=== PATIENT | female | born 1985 | race Caucasian/White ===

== ENCOUNTER 2016-10-04 12:53 | Emergency (ER) | payer OTHER ==
[2016-10-04 13:20] VITALS: BMI 24.7
[2016-10-04 14:17] LABS: BASOPHIL 1.3 % (0-2.0); EOSINOPHIL 4.6 % (0-4.5); MCH 30.4 pg (25.7-33.7); MCHC 33.7 g/dl (32.0-36.0); MEAN PLT VOLUME 8.9 fl (7.5-11.1); NEUTROPHILS 59.8 % (42.8-82.8); PLATELET COUNT 317 K/MM3 (134-434); RDW 14.3 % (11.6-15.6); WHITE BLOOD COUNT 5.7 K/mm3 (4.0-10.0)
[2016-10-04 14:18] LABS: URINE APPEARANCE CLEAR; URINE BILIRUBIN NEGATIVE (NEGATIVE); URINE BLOOD NEGATIVE (NEGATIVE); URINE COLOR YELLOW; URINE GLUCOSE (UA) NEGATIVE (NEGATIVE); URINE KETONE NEGATIVE (NEGATIVE); URINE LEUK ESTERASE NEGATIVE (NEGATIVE); URINE NITRITE NEGATIVE (NEGATIVE); URINE PROTEIN NEGATIVE (NEGATIVE); URINE UROBILINOGEN NEGATIVE mg/dL (0.2-1.0)
--- NOTE | 2016-10-04 14:23 | PDOC ---
History of Present Illness - General Chief Complaint: Pain, Acute Stated Complaint: KIDNEY STONES Time Seen by Provider: 10/04/16 13:23 - History of Present Illness Initial Comments: 10/04/16 14:17 31F w/ hx of sjogren's disease and family hx of nephrolithiasis presenting with right flank pain. Pt states that she developed intermittent right flank pain several weeks ago. She went to her PCP who did an US and saw hydroureter and hematuria. She was sent to a urologist who scheduled her for a CT scan 3 days ago. Over the last 3 days, the pt's pain became constant, severe, located in right flank as well as right abdomen and right scapula. It was mildly relieved with tylenol with codeine, prescribed by the urologist. Pt reports that she hasn 't produced any urine in the last 3 days, and the tylenol with codeine stopped working yesterday. She also endorses some nausea, but denies fevers, chills, chest pain, SOB, emesis, diarrhea, and constipation. 10/04/16 14:24 10/04/16 14:30 10/04/16 14:44 Past History - Past Medical History Allergies/Adverse Reactions: Allergies Allergy/AdvReac Type Severity Reaction Status Date / Time No Known Allergies Allergy Verified 10/04/16 13:16 Home Medications: Ambulatory Orders Diazepam [Valium] 20 mg PO DAILY 10/04/16 Methylphenidate HCl [Ritalin] 30 mg PO DAILY 10/04/16 Anemia: Yes (no medication) Asthma: No Cancer: No Cardiac Disorders: No CVA: No COPD: No CHF: No Dementia: No Diabetes: No GI Disorders: No Disorders: No HTN: No Hypercholesterolemia: No Kidney Stones: No Liver Disease: No Suicide Attempt (Hx): No Seizures: No Thyroid Disease: No Comment:: 10/04/16 14:26 PMH: anxiety, ADHD PSH: 2 c-sections Meds: valium, ritalin, tylenol with codeine Allergies: NKDA, shellfish Family Hx: father and grandfather both had kidney stones Social Hx: drinks 5-6 beers every other day for several years, denies tobacco and drugs - Reproductive History Is Patient Now?: No PID: No - Immunization History Immunization Up to Date: Yes - Psycho/Social/Smoking Cessation Hx Anxiety: No Suicidal Ideation: No Smoking Status: No Smoking History: Never smoked Number of Cigarettes Smoked Daily: 0 Hx Alcohol Use: No Drug/Substance Use Hx: No Substance Use Type: Opiates Hx Substance Use Treatment: No Review of Systems - Review of Systems Comments:: 10/04/16 14:27 GENERAL: No fever, chills, night sweats, or weakness. HEAD, EYES, EARS, NOSE AND THROAT: No change in vision, ear pain, or sore throat CARDIOVASCULAR: No chest pain or palpitations RESPIRATORY: No cough, wheezing, or hemoptysis. GASTROINTESTINAL: + nausea, no vomiting, diarrhea, constipation, or blood in the stool. GENITOURINARY: + anuria MUSCULOSKELETAL: +back pain SKIN: No rashes or pruritis ENDOCRINE: No increased thirst. No abnormal weight change NEUROLOGIC: No headache, dizziness, loss of consciousness, or change in strength /sensation. *Physical Exam - Vital Signs Last Vital Signs Temp Pulse Resp BP Pulse Ox 98.2 F 98 H 19 154/89 100 10/04/16 13:16 10/04/16 13:16 10/04/16 13:16 10/04/16 13:16 10/04/16 13:16 - Physical Exam Comments: 10/04/16 14:28 GENERAL: Awake, alert, and fully oriented, in no acute distress HEAD: normocephalic, atraumatic HEENT: PERRLA, EOMI, sclera anicteric, conjunctiva clear, hearing grossly normal , nares patent, oropharynx clear without exudate, moist mucosa NECK: Normal ROM, supple, no lymphadenopathy, JVD, or masses HEART: Regular rate and rhythm, normal S1 and S2, no murmurs, rubs or gallops, peripheral pulses normal and equal bilaterally. LUNGS: decreased airflow, rhonchi ABDOMEN: soft, voluntary guarding, severely tender to palpation diffusely, worst on the right side Back: + CVA tenderness on right side but not left EXTREMITIES: Normal range of motion, no edema. SKIN: Warm, dry, no rashes or lesions noted. NEUROLOGICAL: Cranial nerves II through XII grossly intact. Normal speech, no focal sensorimotor deficits ED Treatment Course - LABORATORY CBC & Chemistry Diagram: 10/04/16 14:10 10/04/16 14:10 - RADIOLOGY Radiology Studies Ordered: Category Date Time Status KIDNEY / RENAL US [US] Stat Ultrasound 10/04/16 14:11 Ordered Medical Decision Making - Medical Decision Making 10/04/16 14:30 31F w/ hx of sjogren's disease and family hx of nephrolithiasis presenting with acute urinary retention and right flank pain. Pt was catheterized and drained 1L of yellow urine. CBC: wnl CMP: wnl UA: negative renal US: normal lipase: normal urine test: negative Differential for urinary retention includes stone in urethra, medication side effect (codeine, ritalin, valium), sjogren's complication or other neurological disorder. Spoke to Dr. Melgar (urologist) who recommends discharging the patient home with the catheter, and he will see the patient in his office early next week. Pt was informed of this, and she stated that she doesn't want to wait that long to have the catheter removed, so she told us that she wanted it removed. She was explained the risks of further urinary retention and its complications if the catheter was removed now, and she assumed them. She was informed to return to the ED if she developed any concerning symptoms. 10/04/16 15:30 *DC/Admit/Observation/Transfer Diagnosis at time of Disposition: Urinary retention - Discharge Dispostion Disposition: HOME Condition at time of disposition: Improved Admit: No - Referrals Referrals: Vu Zayas MD [Primary Care Provider] - Skip Stevenson MD [Staff Physician] - - Patient Instructions Printed Discharge Instructions: DI for Urinary Retention in Women Additional Instructions: The jacome catheter drained a liter of urine out of your bladder. Your labs and ultrasound were all normal and showed no evidence of a kidney stone or other urinary pathology. Since we removed the catheter as you requested, be extremely cautious of further urinary retention and other concerning symptoms. If you develop any of them, return to the ED. Otherwise, follow up with your urologist early next week and see a neurologist to evaluate you for neurologic causes of urinary retention.
[2016-10-04 14:39] LABS: ALK PHOS 83 U/L (45-117); ANION GAP 7 (8-16); BILIRUBIN,TOTAL 0.4 mg/dL (0.2-1.0); CO2 29 mmol/L (21-32); CREATININE 0.9 mg/dL (0.55-1.02); GLUCOSE,RANDOM 74 mg/dL (74-106); SGOT/AST 14 U/L (15-37); SGPT/ALT 24 U/L (12-78)
--- NOTE | 2016-10-04 15:32 | PDOC ---
Attending Attestation - Resident Resident Name: Rafael Madera - ED Attending Attestation I have performed the following: I have examined & evaluated the patient, The case was reviewed & discussed with the resident, I agree w/resident's findings & plan, Exceptions are as noted - HPI HPI: 10/04/16 15:33 31 F with h/o sjogren's disease presents to ER with urinary retention. Pt states that she has been seeing a urologist for flank pain. Was told that she had kidney stones because she was found to have blood in her urine. Pt states that her urologist performed a renal US and found hydronephrosis. She presents today because she states that she has not been able to void in 4 days. She denies F/C. Denies any back pain, denies any leg weakness or numbness, no saddle anesthesia, no loss of bowel control. Pt has not had kidney stones in the past but states she has a family history of them. In ER, jacome was placed with immediate drainage of 1L clear yellow urine. Pt reports significant improvement in pain after that. - Physicial Exam PE: 10/04/16 15:38 "GENERAL: Awake, alert, and fully oriented, in no acute distress HEAD: No signs of trauma EYES: PERRLA, EOMI, sclera anicteric, conjunctiva clear ENT: Auricles normal inspection, hearing grossly normal, nares patent, oropharynx clear without exudates. Moist mucosa NECK: Normal ROM, supple, no lymphadenopathy, JVD, or masses LUNGS: Breath sounds equal, clear to auscultation bilaterally. No wheezes, and no crackles HEART: Regular rate and rhythm, normal S1 and S2, no murmurs, rubs or gallops ABDOMEN: soft, mild suprapubic tenderness : jacome in place draining clear yellow urine, no sediment, no blood, + bilateral CVAT EXTREMITIES: Normal range of motion, no edema. No clubbing or cyanosis. No cords, erythema, or tenderness NEUROLOGICAL: Cranial nerves II through XII grossly intact. Normal speech, normal gait SKIN: Warm, Dry, normal turgor, no rashes or lesions noted. - Medical Decision Making 10/04/16 15:44 31 F with sjogren's disease presenting with urinary retention, now resolved s/p jacome catheter. - Labs, UA - Renal US - Call urologist 10/04/16 15:44 labs and UA unremarkable. Renal US with no hydro. Etiology of pt's urinary retention unclear. Spoke with pt's urologist, Dr. Pulido, who states he will follow up with pt in clinic on Friday. Discussed results with patient, who agrees to follow up with urology. However, pt adamantly refusing jacome catheter at this time, stating that she has young children, and it will be difficult to manage them while wearing a leg bag. Pt understands risk of removing jacome catheter and states that she will return to the ER if she has another episode of urinary retention. Discharge Disposition - Diagnosis Urinary retention - Discharge Dispostion Disposition: HOME Condition at time of disposition: Improved Last Admission D/C Date: 04/19/16 - Referrals Referrals: Skip Stevenson MD [Staff Physician] - Vu Zayas MD [Primary Care Provider] - - Patient Instructions Printed Discharge Instructions: DI for Urinary Retention in Women Additional Instructions: The jacome catheter drained a liter of urine out of your bladder. Your labs and ultrasound were all normal and showed no evidence of a kidney stone or other urinary pathology. Since we removed the catheter as you requested, be extremely cautious of further urinary retention and other concerning symptoms. If you develop any of them, return to the ED. Otherwise, follow up with your urologist early next week and see a neurologist to evaluate you for neurologic causes of urinary retention. - Post Discharge Activity
[2016-10-04 16:03] VITALS: BP 130/80; PULSE 87; TEMP 98.3
[2016-10-04 16:47] LABS: URINE MARIJUANA THC NEGATIVE ng/ml (CUTOFF=50)
== END 2016-10-04 16:02 | disposition home or self-care (01) ==
LOC: JER 12:53
PROC: 0T9B70Z Drainage of Bladder with Drainage Device, Via Natural or Artificial Opening (ICD-10-PCS; principal; 2016-10-04)
DX: R33.8 Other retention of urine (principal)
CPT/HCPCS: 36415; 51702; 76775-TC; 80053; 80307; 81003; 82150; 83690; 84703; 85025; 99284-25

== ENCOUNTER 2017-05-15 16:38 | Observation (INO) | payer OTHER ==
--- NOTE | 2017-05-15 16:48 | PDOC ---
Rapid Medical Evaluation Chief Complaint: Pain Time Seen by Provider: 05/15/17 16:42 Medical Evaluation: Allergies Allergy/AdvReac Type Severity Reaction Status Date / Time No Known Allergies Allergy Verified 10/04/16 13:16 05/15/17 16:44 I have performed a brief in-person evaluation of this patient. The patient presents with a chief complaint of: , shortness of breath and cramping in , unknown LMP "maybe nov or december", denies swelling to legs Pertinent physical exam findings: well appearing, lungs ctab, tachy to 102 I have ordered the following: labs, urine, cxr The patient will proceed to the ED for further evaluation. Discharge Disposition - Diagnosis Shortness of breath during - Referrals - Patient Instructions - Post Discharge Activity
[2017-05-15 16:51] VITALS: BMI 24.4
--- NOTE | 2017-05-15 17:17 | PDOC ---
History of Present Illness - General Chief Complaint: Pain Stated Complaint: STOMACH PAIN Time Seen by Provider: 05/15/17 16:42 History Source: Patient Exam Limitations: No Limitations - History of Present Illness Initial Comments: 05/15/17 17:47 PCP: Nicholas PICKETT , Wili PICKETT CC: SOB and abdominal cramping HPI: 30 year old female , with unknown LMP and does not age of presented with 3 weeks history of sob and abdominal cramping , that has been worsening recently , the abdominal pain is 6/10 bilateral , and she reports feeling werd movement in her abdomen when she did not feel in her previous pregnancies.She reports chills but no fever, she reports sore throat and difficulty swallowing, she denies any cough , dysduria or hematuria but reports bad urine smell with dark color. she reports constipation last BM 3 days ago. she reports chest pain mid sternal radiated to her left arm last week that resolved spontaneously. Pmhx: sjougren disease, anemia, ADHD on Ritalin stopped last week PSHX: X2 FH:Father : Heart Disease, CAD, COPD, Lungs cancer and esophageal cancer in her father , DM , BP Mothr with BP Allergies: NKDA Meds: None Physical Exam: General well nourished in NAD Head: NC.AT Lungs: CTA B.l Heart: RRR, no MRG Abdomen: gestational , diffuse tenderness, normal BS Neuro: No focal deficit, normal speech, normal gait Skin: warm , dry with scaling Psych : appropriate mood and effect vaginal exam: no cervical motion tenderness, white discharges , no blood, os is closed. work up: CBC, CMP Type and screen tranvaginal US vs abdominla US pt refused IV Tylenol Past History - Past Medical History Allergies/Adverse Reactions: Allergies Allergy/AdvReac Type Severity Reaction Status Date / Time No Known Allergies Allergy Verified 05/15/17 16:45 Home Medications: Ambulatory Orders Methylphenidate HCl [Ritalin] 30 mg PO DAILY 10/04/16 Anemia: Yes (no medication) Asthma: No Cancer: No Cardiac Disorders: No CVA: No COPD: No CHF: No Dementia: No Diabetes: No GI Disorders: No Disorders: No HTN: No Hypercholesterolemia: No Kidney Stones: No Liver Disease: No Seizures: No Thyroid Disease: No - Reproductive History PID: No - Immunization History Immunization Up to Date: Yes - Suicide/Smoking/Psychosocial Hx Smoking Status: No Smoking History: Never smoked Number of Cigarettes Smoked Daily: 0 Hx Alcohol Use: No Drug/Substance Use Hx: No Substance Use Type: Opiates Hx Substance Use Treatment: No *Physical Exam - Vital Signs Last Vital Signs Temp Pulse Resp BP Pulse Ox 97.9 F 102 H 20 119/78 99 05/15/17 16:40 05/15/17 16:40 05/15/17 16:40 05/15/17 16:40 05/15/17 16:40 ED Treatment Course - LABORATORY CBC & Chemistry Diagram: 05/15/17 17:16 *DC/Admit/Observation/Transfer Diagnosis at time of Disposition: Shortness of breath during - Referrals Referrals: Vu Zayas MD [Primary Care Provider] - - Patient Instructions - Post Discharge Activity
[2017-05-15 17:30] LABS: URINE APPEARANCE CLEAR; URINE BILIRUBIN NEGATIVE (<2.0 mg/dL); URINE BLOOD NEGATIVE (NEGATIVE); URINE COLOR YELLOW; URINE GLUCOSE (UA) NEGATIVE (NEGATIVE); URINE KETONE NEGATIVE (NEGATIVE); URINE LEUK ESTERASE NEGATIVE (NEGATIVE); URINE NITRITE NEGATIVE (NEGATIVE); URINE PROTEIN NEGATIVE (NEGATIVE); URINE UROBILINOGEN NEGATIVE mg/dL (0.2-1.0)
--- NOTE | 2017-05-15 17:48 | PDOC ---
Attending Attestation - [facility] HPI: 05/15/17 17:56 The patient is a 32 year old female(, does not remember LMP), with a significant past medical history of anemia and ADHD, who presents to the emergency department with abdominal pain and shortness of breath for approximately 3 weeks. The patient reports her pain is localized mainly to the lower quadrants and is crampy in nature and nonradiating. She rates it a 6/10, with no alleviating or exacerbating factors. She reports associated constipation for 3 days, but no nausea, vomiting, or diarrhea. Patient states she feels a weird movement she has not experienced in previous pregnancies. She reports foul odorous urine, but no dysuria, hematuria, frequency, urgency, or vaginal bleeding/discharge. She reports a sore throat, but denies fever or chills. Patient reports she has not followed up with an OB for this visit. OBGYN: Dr. Martinez - Physicial Exam PE: 05/15/17 17:56 Constitutional: Awake, alert, oriented. No acute distress. Head: Normocephalic. Atraumatic Eyes: PERRL. EOMI. Conjunctivae are not pale. ENT: Mucous membranes are moist and intact. Posterior pharynx without exudates or erythema. Uvula midline. Neck: Supple. Full ROM. No lymphadenopathy. Cardiovascular: Tachycardic. Regular rhythm. S1, S2 regular. Distal pulses are 2+ and symmetric. Pulmonary/Chest: No evidence of respiratory distress. Clear to auscultation bilaterally No wheezing, rales or rhonchi. Abdominal: Mild lower pelvic tenderness to palpation. Palpable uterus below the umbilicus. Soft and non-distended. No rebound, guarding or rigidity. No organomegaly. Good bowel sounds. Pelvic: Defer to resident note. Back: No CVA tenderness. Musculoskeletal: No edema. No cyanosis. No clubbing. Full range of motion in all extremities. No calf tenderness. Radial/pedal pulses are intact and 2+ bilaterally Skin: Skin is warm and dry. No petechiae. No purpura. Neurological: Alert and oriented to person, place, and time. Cranial nerves II -XII are grossly intact. Normal speech. Strength is grossly symmetric. No sensory deficits. Psychiatric: Good eye contact. Normal interaction, affect and behavior. - Medical Decision Making 05/15/17 17:56 Documentation prepared by Dorothy Nelson, acting as medical clinic manager for Amy Motley DO. <Dorothy Nelson - Last Filed: 05/16/17 00:34> - Resident Resident Name: Aric Quiñones - ED Attending Attestation I have performed the following: I have examined & evaluated the patient, The case was reviewed & discussed with the resident, I agree w/resident's findings & plan, Exceptions are as noted - Medical Decision Making 05/15/17 17:48 I, Dr. Amy Motley, DO, attest that this document has been prepared under my direction and personally reviewed by me in its entirety. I further attest, that it accurately reflects all work, treatment, procedures and medical decision -making performed by me. 05/15/17 19:03 a/p: 32yo at unknown dates with pelvic cramping -states she does feel the baby move -has note seen artificial breeding distributor, no care -denies dysuria -no n/v/d now, had it in february -will obtain labs, pelvic u/s -will give vitamin rx -follows with Dr. Martinez -will give ivf hydration -will monitor and reassess 05/15/17 23:27 pt not feeling well after the lab stick states hx of vasovagal placed in a stretcher given apple juice will monitor and reassess 05/15/17 23:31 glucose on labs was 66, after apple juice now 99 pt feeling better and drinking OJ 05/15/17 23:31 pt asking for her phone to call her family 05/16/17 00:04 pt with hypoglycemia on labs finally agreeable to have IV placed and give dextrose 05/16/17 00:38 re-eval: pt agreeable to stay for further eval case discussed with DR. 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 Galan <Amy Motley - Last Filed: 05/16/17 00:57> Discharge Disposition - Discharge Dispostion Last Admission D/C Date: 04/19/16 Admit: Yes <Amy Motley - Last Filed: 05/16/17 00:57> - Diagnosis Shortness of breath during , Abdominal pain during in second trimester, Hypoglycemia, - Discharge Dispostion Condition at time of disposition: Stable - Prescriptions Prescriptions: Meclizine HCl [Antivert -] 12.5 mg PO TID 7 Days #21 tablet MDD 3 tab Vit 108/Iron/Folic AC [ One Tablet] 1 each PO DAILY 30 Days # 30 tablet MDD 1 tab - Referrals Referrals: Jailyn Mendez MD [Staff Physician] - Vu Zayas MD [Primary Care Provider] - Brendan Martinez MD [Staff Physician] - - Patient Instructions Printed Discharge Instructions: DI for Abdominal Pain -- Early Additional Instructions: Please return to the emergency department with any new or worsening symptoms or concerns. Please follow up with your School Secretary physician within 72 hours. Please take vitamins daily. - Post Discharge Activity Work/School Note: Back to Work ED Treatment Course - LABORATORY CBC & Chemistry Diagram: 05/15/17 21:45 05/15/17 17:16 - ADDITIONAL ORDERS Additional order review: Laboratory Results 05/15/17 05/15/17 05/15/17 21:49 18:10 17:20 Sodium Potassium Chloride Carbon Dioxide Anion Gap BUN Creatinine Creat Clearance w eGFR POC Glucometer 99.78533 Random Glucose Calcium Total Bilirubin AST ALT Alkaline Phosphatase Total Protein Albumin Beta HCG, Quant Urine Color Yellow Urine Appearance Clear Urine pH 5.0 Ur Specific [place] 1.033 Urine Protein Negative Urine Glucose (UA) Negative Urine Ketones Negative Urine Blood Negative Urine Nitrite Negative Urine Bilirubin Negative Urine Urobilinogen Negative Ur Leukocyte Esterase Negative Blood Type O POSITIVE Antibody Screen Negative 05/15/17 05/15/17 17:16 17:16 Sodium 141 Potassium 3.7 Chloride 105 Carbon Dioxide 25 Anion Gap 11 BUN 12 Creatinine 0.5 L Creat Clearance w eGFR > 60 POC Glucometer Random Glucose 66 L Calcium 8.6 Total Bilirubin 0.3 D AST 18 ALT 22 Alkaline Phosphatase 63 Total Protein 6.6 Albumin 3.6 Beta HCG, Quant 05901.1 Urine Color Urine Appearance Urine pH Ur Specific [place] Urine Protein Urine Glucose (UA) Urine Ketones Urine Blood Urine Nitrite Urine Bilirubin Urine Urobilinogen Ur Leukocyte Esterase Blood Type Cancelled Antibody Screen Cancelled 05/15/17 05/15/17 21:49 21:45 RBC 3.65 MCV 89.2 MCHC 35.0 RDW 14.4 MPV 8.4 Neutrophils % 71.6 Lymphocytes % 19.4 D Monocytes % 6.9 Eosinophils % 1.4 Basophils % 0.7 POC Glucometer 99.24849 - RADIOLOGY Radiograph Interpretation: 05/16/17 00:35 EXAM: Transvaginal US INTERPRETED BY: Dr. Espinal REVIEWED BY: Dr. Motley IMPRESSION: Single live intrauterine with biometry corresponding to an estimated gestational age of 16 weeks and 2 days. A dedicated anatomy survey should be performed at the appropriate gestational age - Medications Given in the ED: ED Medications Discontinued Medications Generic Name Dose Route Start Last Admin Trade Name Freq PRN Reason Stop Dose Admin Dextrose 12.5 gm 05/16/17 00:04 05/16/17 00:32 D50w (Vial) - IVPUSH 05/16/17 00:05 12.5 gm NOW ONE Administration Sodium Chloride 1,000 mls @ 1,000 mls/hr 05/15/17 18:31 05/15/17 20:09 Normal Saline - IV 05/15/17 19:30 Not Given ASDIR STA Sodium Chloride 1,000 mls @ 1,000 mls/hr 05/15/17 18:31 05/15/17 20:09 Normal Saline - IV 05/15/17 19:30 Not Given ASDIR STA Meclizine HCl 25 mg 05/15/17 22:53 05/16/17 00:33 Antivert - PO 05/15/17 22:54 Not Given ONCE ONE Sodium Chloride 1,000 ml 05/16/17 00:04 05/16/17 00:32 Normal Saline - IV 05/16/17 00:05 1,000 ml ONCE ONE Administration <Dorothy Nelson - Last Filed: 05/16/17 00:34> - LABORATORY CBC & Chemistry Diagram: 05/15/17 21:45 05/15/17 17:16 <Amy Motley - Last Filed: 05/16/17 00:57> Critical Care Time/MDM Note - Medical Decision Making Note: 05/16/17 00:[address] Martinez at 00:35. <Dorothy Nelson - Last Filed: 05/16/17 00:34>
[2017-05-15 18:20] LABS: ALBUMIN 3.6 g/dl (3.4-5.0); ALK PHOS 63 U/L (45-117); ANION GAP 11 (8-16); BILIRUBIN,TOTAL 0.3 mg/dL (0.2-1.0); BLOOD UREA NITROGEN 12 mg/dL (7-18); CALCIUM 8.6 mg/dL (8.5-10.1); CHLORIDE 105 mmol/L (98-107); CO2 25 mmol/L (21-32); CREATININE 0.5 mg/dL (0.55-1.02); GLUCOSE,RANDOM 66 mg/dL (74-106); POTASSIUM 3.7 mmol/L (3.5-5.1); SGOT/AST 18 U/L (15-37); SGPT/ALT 22 U/L (12-78); SODIUM 141 mmol/L (136-145); TOT PROT 6.6 g/dl (6.4-8.2)
[2017-05-15] MEDS ORDERED: SODIUM CHLORIDE 1,000 ML IV STA ×2 (18:31)
--- NOTE | 2017-05-15 18:35 | PDOC ---
*Physical Exam - Vital Signs Last Vital Signs Temp Pulse Resp BP Pulse Ox 97.9 F 102 H 20 119/78 99 05/15/17 16:40 05/15/17 16:40 05/15/17 16:40 05/15/17 16:40 05/15/17 16:40 - Physical Exam Comments: 05/15/17 18:51 GENERAL: Awake, alert, and fully oriented, in no acute distress HEAD: No signs of trauma, normocephalic, atraumatic EYES: PERRLA, EOMI, sclera anicteric, conjunctiva clear ENT: Hearing grossly normal, nares patent, oropharynx clear without exudates. Moist mucosa NECK: Normal ROM, supple, no lymphadenopathy, JVD, or masses LUNGS: No distress, speaks full sentences, clear to auscultation bilaterally HEART: Regular rate and rhythm, normal S1 and S2, no murmurs, rubs or gallops, peripheral pulses normal and equal bilaterally. ABDOMEN: Soft, lower abdominal ttp, normoactive bowel sounds. No guarding, no rebound. No masses. Neg CVA ttp. EXTREMITIES : Normal inspection, Normal range of motion, no edema. No clubbing or cyanosis. SKIN: Warm, Dry, normal turgor, no rashes or lesions noted ED Treatment Course - LABORATORY CBC & Chemistry Diagram: 05/15/17 21:45 05/15/17 17:16 - ADDITIONAL ORDERS Additional order review: Laboratory Results 05/15/17 05/15/17 17:20 17:16 Urine Color Yellow Urine Appearance Clear Urine pH 5.0 Ur Specific [place] 1.033 Urine Protein Negative Urine Glucose (UA) Negative Urine Ketones Negative Urine Blood Negative Urine Nitrite Negative Urine Bilirubin Negative Urine Urobilinogen Negative Ur Leukocyte Esterase Negative Blood Type Cancelled Antibody Screen Cancelled Medical Decision Making - Medical Decision Making 05/15/17 18:21 30 yo F with h/o Sjogrens Syndrome , unknown LMP and wga who p/w SOB x 3 weeks, and worsening, diffuse, abdominal cramping , and report of abnormal movement/sensation in abdomen. Endorses dysphagia, foul smelling urine and retrosternal CP with radiation to LUE ( now resolved). Denies N/V, F/C, diarrhea , weakness, lightheadedness. Cervical os closed on pelvic exam, with scant discharge. Slight lower abdominal ttp. Received handoff from Dr. Quiñones. We are awaiting labs and transvaginal U/S. Pt. triaged in [facility]. Evaluating viable IUP, and or related causes of abdominal pain/cramping such as ectopic , or early threatened . ED Course: 05/15/17 18:25 CBC, CMP, UA, Urine Cx., [facility] [place] 05/15/17 18:35 CMP Unremarkable UA: Neg 05/15/17 19:48 Transvaginal U/S: 16w 2d viable IUP. [facility] [place] 05/15/17 19:51 Patient stable and ready for d/c with return precautions. Advised to f/u with Ob /Network Design Architect. vitamins sent to pharmacy. 05/15/17 22:21 CBC: Unremarkable *DC/Admit/Observation/Transfer Diagnosis at time of Disposition: Shortness of breath during , Abdominal pain during in second trimester - Discharge Dispostion Condition at time of disposition: Stable Admit: No - Prescriptions Prescriptions: Vit 108/Iron/Folic AC [ One Tablet] 1 each PO DAILY 30 Days # 30 tablet MDD 1 tab - Referrals Referrals: Vu Zayas MD [Primary Care Provider] - Jailyn Mendez MD [Staff Physician] - Brendan Martinez MD [Staff Physician] - - Patient Instructions Printed Discharge Instructions: DI for Abdominal Pain -- Early Additional Instructions: Please return to the emergency department with any new or worsening symptoms or concerns. Please follow up with your Diagnostic Radiologic Technologist physician within 72 hours. Please take vitamins daily. - Post Discharge Activity Forms/Work/School Notes: Back to Work - Attestations Physician Attestion: 05/15/17 19:51 I attest to the information provided in this note.
[2017-05-15] MEDS ORDERED: HEMOQUE CONTROL SOLUTION ONE (21:38)
[2017-05-15 21:53] LABS: BASO % 0.7 % (0-2.0); EOS % 1.4 % (0-4.5); HEMATOCRIT 32.6 % (32.4-45.2); HEMOGLOBIN 11.4 GM/dL (10.7-15.3); LYMPH % 19.4 % (8-40); MCH 31.2 pg (25.7-33.7); MEAN CELL VOLUME 89.2 fl (80-96); MEAN PLT VOLUME 8.4 fl (7.5-11.1); MONO % 6.9 % (3.8-10.2); NEUT % 71.6 % (42.8-82.8); PLATELET COUNT 247 K/MM3 (134-434); RBC 3.65 M/mm3 (3.60-5.2); RDW 14.4 % (11.6-15.6); WHITE BLOOD COUNT 7.2 K/mm3 (4.0-10.0)
[2017-05-15] MEDS ORDERED: MECLIZINE HCL 25 MG TABLET (FP) PO ONE (22:53)
[2017-05-16] MEDS ORDERED: DEXTROSE 50%-WATER 25 GM/50 ML DISP.SYRIN ONE (00:02)
[2017-05-16] MEDS ORDERED: SODIUM CHLORIDE 0.9% 1000 ML INFUS.BAG IV ONE (00:04)
[2017-05-16] MEDS ORDERED: DEXTROSE 50%-WATER - 25 GM/50 ML VIAL IVPUSH ONE (00:04)
--- NOTE | 2017-05-16 00:56 | HP ---
CHIEF COMPLAINT: Abdominal Cramping PCP: Dr. Zayas HISTORY OF PRESENT ILLNESS: This is a 32 y/o young woman with a medical history of , ADHD, Anemia, Depression, Anxiety, Opiate Abuse (detox 2016). Who presents to the ED with abdominal cramping, SOB, dysuria x3 weeks. Patient reports knowing that she was , and had not received care. Patient unsure of her LMP due to irregular menses. She reports having cramping that was worse today, white discharge, with foul smelling urine. She also reports constipation x 3 days. Patient reports having SOB, cough, and pleuritic chest pain- now resolved. Patient denies fever, chills, [place], V/D, vaginal bleeding. ER course was notable for: (1) Trans Vaginal US- Single live intrauterine gestation 16 weeks and 2 days (2) Serum Glucose 66 (3) [facility] [place] [id number] Recent Travel: None PAST MEDICAL HISTORY: See HPI PAST SURGICAL HISTORY: C- sections x2 Social History: Smoking: Never Alcohol: Denies Drugs: Denies Lives with Spouse Family History: Father- Heart disease, Lung Ca Mother- HTN Allergies No Known Allergies Allergy (Verified 05/15/17 16:45) HOME MEDICATIONS: Home Medications Medication Instructions Recorded Methylphenidate HCl [Ritalin] 60 mg PO DAILY 10/04/16 Meclizine HCl [Antivert -] 12.5 mg PO TID 7 Days #21 tablet 05/15/17 MDD 3 tab Vit 108/Iron/Folic AC 1 each PO DAILY 30 Days #30 tablet 05/15/17 [ One Tablet] MDD 1 tab REVIEW OF SYSTEMS CONSTITUTIONAL: Absent: fever, chills, diaphoresis, generalized weakness, malaise, loss of appetite, weight change HEENT: Absent: rhinorrhea, nasal congestion, throat pain, throat swelling, difficulty swallowing, mouth swelling, ear pain, eye pain, visual changes CARDIOVASCULAR: Absent: chest pain, syncope, palpitations, irregular heart rate, lightheadedness , peripheral edema RESPIRATORY: shortness of breath Absent: cough, dyspnea with exertion, orthopnea, wheezing, stridor, hemoptysis GASTROINTESTINAL: abdominal pain Absent: abdominal distension, nausea, vomiting, diarrhea, constipation, melena , hematochezia GENITOURINARY: dysuria, malodorous urine Absent: frequency, urgency, hesitancy, hematuria, flank pain, genital pain GYNECOLOGY: vaginal discharge MUSCULOSKELETAL: Absent: myalgia, arthralgia, joint swelling, back pain, neck pain SKIN: Absent: rash, itching, pallor HEMATOLOGIC/IMMUNOLOGIC: Absent: easy bleeding, easy bruising, lymphadenopathy, frequent infections ENDOCRINE: Absent: unexplained weight gain, unexplained weight loss, heat intolerance, cold intolerance NEUROLOGIC: Absent: headache, focal weakness or paresthesias, dizziness, unsteady gait, seizure, mental status changes, bladder or bowel incontinence PSYCHIATRIC: Absent: anxiety, depression, suicidal or homicidal ideation, hallucinations. PHYSICAL EXAMINATION Vital Signs - 24 hr 05/15/17 05/15/17 05/15/17 16:40 20:39 23:57 Temperature 97.9 F 98.5 F Pulse Rate 102 H Pulse Rate [ 63 58 L Apical] Respiratory 20 18 17 Rate Blood Pressure 119/78 Blood Pressure 122/70 100/63 [Left Arm] O2 Sat by Pulse 99 100 98 Oximetry (%) GENERAL: Asleep, alert, and fully oriented, in no acute distress. HEAD: Normal with no signs of trauma. EYES: Pupils equal, round and reactive to light, extraocular movements intact, sclera anicteric, conjunctiva clear. No lid lag. EARS, NOSE, THROAT: Ears normal, nares patent, oropharynx clear without exudates. Dry mucous membranes. NECK: Normal range of motion, supple without lymphadenopathy, JVD, or masses. LUNGS: Breath sounds equal, clear to auscultation bilaterally. No wheezes, and no crackles. No accessory muscle use. HEART: Regular rate and rhythm, normal S1 and S2 without murmur, rub or gallop. ABDOMEN: Soft, Generalized tenderness, not distended, normoactive bowel sounds, no guarding, no rebound, no masses. No hepatomegaly or splenomegaly. MUSCULOSKELETAL: Normal range of motion at all joints. No bony deformities or tenderness. No CVA tenderness. UPPER EXTREMITIES: 2+ pulses, warm, well-perfused. No cyanosis. No clubbing. No peripheral edema. LOWER EXTREMITIES: 2+ pulses, warm, well-perfused. No calf tenderness. No peripheral edema. NEUROLOGICAL: Cranial nerves II-XII intact. Normal speech. Gait not observed. PSYCHIATRIC: Cooperative. Good eye contact. Appropriate mood and affect. SKIN: Warm, dry, normal turgor, no rashes or lesions noted, normal capillary refill. Tattoos Laboratory Results - last 24 hr 05/15/17 05/15/17 05/15/17 17:16 17:16 17:20 WBC RBC Hgb Hct MCV MCH MCHC RDW Plt Count MPV Neutrophils % Lymphocytes % Monocytes % Eosinophils % Basophils % Sodium 141 Potassium 3.7 Chloride 105 Carbon Dioxide 25 Anion Gap 11 BUN 12 Creatinine 0.5 L Creat Clearance w eGFR > 60 POC Glucometer Random Glucose 66 L Calcium 8.6 Total Bilirubin 0.3 D AST 18 ALT 22 Alkaline Phosphatase 63 Total Protein 6.6 Albumin 3.6 Beta HCG, Quant 68173.1 Urine Color Yellow Urine Appearance Clear Urine pH 5.0 Ur Specific [place] 1.033 Urine Protein Negative Urine Glucose (UA) Negative Urine Ketones Negative Urine Blood Negative Urine Nitrite Negative Urine Bilirubin Negative Urine Urobilinogen Negative Ur Leukocyte Esterase Negative Blood Type Cancelled Antibody Screen Cancelled 05/15/17 05/15/17 05/15/17 18:10 21:45 21:49 WBC 7.2 RBC 3.65 Hgb 11.4 D Hct 32.6 MCV 89.2 MCH 31.2 MCHC 35.0 RDW 14.4 Plt Count 247 D MPV 8.4 Neutrophils % 71.6 Lymphocytes % 19.4 D Monocytes % 6.9 Eosinophils % 1.4 Basophils % 0.7 Sodium Potassium Chloride Carbon Dioxide Anion Gap BUN Creatinine Creat Clearance w eGFR POC Glucometer 99.13394 Random Glucose Calcium Total Bilirubin AST ALT Alkaline Phosphatase Total Protein Albumin Beta HCG, Quant Urine Color Urine Appearance Urine pH Ur Specific [place] Urine Protein Urine Glucose (UA) Urine Ketones Urine Blood Urine Nitrite Urine Bilirubin Urine Urobilinogen Ur Leukocyte Esterase Blood Type O POSITIVE Antibody Screen Negative ASSESSMENT/PLAN: This is a 32 y/o young woman PMH , ADHD, Depression, Anxiety, Anemia, Opiate Abuse. Placed in Observation for Hypoglycemia, Plan: 1. Hypoglycemia- Possibly due to Hormone Deficiency vs Insulinoma vs Alcohol vs Drugs, FS Q3h, D5W@42ml/hr, BMP, Cortisol level in am, Appreciate Endocrinology consult, monitor vitals, Seizure and Fall precautions 2. - Trans Vaginal US- single intrauterine gestation 16w 2d, vitamins, FU with VISUAL EFFECTS ARTIST- care 3. Anemia- stable, Will transfuse if Hgb < 7.0, monitor CBC 4. Psych- Depression, Anxiety, ADHD- stable, Consult VISUAL EFFECTS ARTIST or Psych regarding Ritalin use 2/2 Category C 5. Opiate Abuse- prior Detox hx, UDT-pending 6. FEN- D5W@42ml/hr, Monitor Glucose, Regular Diet 7. DVT ppx- OOB, SCDs Code Status: Full Code Dispo: Observation Problem List - Problem (1) Hypoglycemia Code(s): E16.2 - HYPOGLYCEMIA, UNSPECIFIED (2) Abdominal pain during in second trimester Code(s): O26.892 - OTH RELATED CONDITIONS, SECOND TRIMESTER; R10.9 - UNSPECIFIED ABDOMINAL PAIN (3) ADHD (attention deficit hyperactivity disorder) Code(s): F90.9 - ATTENTION-DEFICIT HYPERACTIVITY DISORDER, UNSPECIFIED TYPE (4) Anxiety disorder Code(s): F41.9 - ANXIETY DISORDER, UNSPECIFIED (5) Opiate abuse, episodic Code(s): F11.10 - OPIOID ABUSE, UNCOMPLICATED (6) DVT prophylaxis Code(s): BLY1581 - Visit type - Emergency Visit Emergency Visit: Yes ED Registration Date: 05/15/17 Care time: The patient presented to the Emergency Department on the above date and was hospitalized for further evaluation of their emergent condition. - New Patient This patient is new to me today: Yes Date on this admission: 05/16/17 - Critical Care Critical Care patient: No Hospitalist Screening - Colonoscopy Questionnaire Colonoscopy Questionnaire: Colonoscopy Questionnaire - Patient: 50 - 75 years old and never had a screening colonoscopy: No History of colon or rectal polyps, or CA: No History of IBD, Crohn's disease or UC: No History of abdominal radiation therapy as a child: No - Relative: 1 with colon or rectal CA, or polyps at age 60 or younger: No Colon or rectal CA diagnosed at age 45 or younger: No Multiple relatives with colon or rectal CA: No - Outcome: Screening Result: Negative Screen
[2017-05-16] MEDS: DEXTROSE 5%-WATER - 1,000 ML IV SCH (02:46)
[2017-05-16 03:34] LABS: COCAINE, UR NEGATIVE ng/ml (CUTOFF=300); METHADONE, UR NEGATIVE ng/ml (CUTOFF=300); OPIATES, URI NEGATIVE ng/ml (CUTOFF=300); PHENCYCLIDINE,URINE NEGATIVE ng/ml (CUTOFF=25); URINE BARBITURATES NEGATIVE ng/ml (CUTOFF=200); URINE BENZODIAZEPINES NEGATIVE ng/ml (CUTOFF=200)
[2017-05-16 03:35] LABS: URINE AMPHETAMINES POSITIVE ng/ml (CUTOFF=500)
[2017-05-16 06:47] LABS: BASO % 0.9 % (0-2.0); EOS % 1.5 % (0-4.5); HEMOGLOBIN 11.9 GM/dL (10.7-15.3); LYMPH % 24.1 % (8-40); MCH 31.1 pg (25.7-33.7); MEAN CELL VOLUME 88.9 fl (80-96); MEAN PLT VOLUME 8.8 fl (7.5-11.1); MONO % 9.7 % (3.8-10.2); NEUT % 63.8 % (42.8-82.8); PLATELET COUNT 246 K/MM3 (134-434); RBC 3.82 M/mm3 (3.60-5.2); RDW 14.8 % (11.6-15.6); WHITE BLOOD COUNT 5.6 K/mm3 (4.0-10.0)
[2017-05-16 07:09] LABS: ANION GAP 9 (8-16); BLOOD UREA NITROGEN 4 mg/dL (7-18); CALCIUM 7.9 mg/dL (8.5-10.1); CHLORIDE 107 mmol/L (98-107); CO2 25 mmol/L (21-32); CREATININE 0.4 mg/dL (0.55-1.02); GLUCOSE,RANDOM 86 mg/dL (74-106); PHOSPHOROUS 3.5 mg/dL (2.5-4.9); POTASSIUM 3.5 mmol/L (3.5-5.1); SODIUM 141 mmol/L (136-145)
--- NOTE | 2017-05-16 10:30 | PN ---
Progress Note, Physician Chief Complaint: PATIENT SEEN AND EXAMINED NOTES AND CHART REVIEWED I AGREE WITH THE RESIDENTS AND HOSPITALISTS PLAN - Current Medication List Current Medications: Active Medications Dextrose (D5w -) 1,000 mls @ 42 mls/hr IV ASDIR MICHELLE Last Admin: 05/16/17 02:46 Dose: 42 mls/hr - Objective Vital Signs: Vital Signs Temperature 97.9 F 05/16/17 07:48 Pulse Rate 57 L 05/16/17 07:48 Respiratory Rate 20 05/16/17 07:48 Blood Pressure 132/54 05/16/17 07:48 O2 Sat by Pulse Oximetry (%) 98 05/16/17 08:15 Constitutional: Yes: Mild Distress Eyes: Yes: WNL HENT: Yes: WNL Neck: Yes: WNL Cardiovascular: Yes: WNL Respiratory: Yes: WNL Gastrointestinal: Yes: WNL Genitourinary: Yes: WNL Musculoskeletal: Yes: WNL Extremities: Yes: WNL Edema: No Peripheral Pulses WNL: Yes Integumentary: Yes: WNL Wound/Incision: Yes: Clean/Dry Neurological: Yes: WNL ...Motor Strength: WNL Psychiatric: Yes: Other Labs: CBC, BMP 05/16/17 06:24 05/16/17 06:24 Problem List - Problems (1) Abdominal pain during in second trimester Code(s): O26.892 - OTH RELATED CONDITIONS, SECOND TRIMESTER; R10.9 - UNSPECIFIED ABDOMINAL PAIN (2) DVT prophylaxis Code(s): [id number] - (3) Hypoglycemia Code(s): E16.2 - HYPOGLYCEMIA, UNSPECIFIED (4) Code(s): Z34.90 - ENCNTR FOR SUPRVSN OF NORMAL , UNSP, UNSP TRIMESTER (5) Shortness of breath during Code(s): O99.89 - OTH DISEASES AND CONDITIONS COMPL PREG/CHLDBRTH; R06.02 - SHORTNESS OF BREATH (6) ADHD (attention deficit hyperactivity disorder) Code(s): F90.9 - ATTENTION-DEFICIT HYPERACTIVITY DISORDER, UNSPECIFIED TYPE (7) Anxiety disorder Code(s): F41.9 - ANXIETY DISORDER, UNSPECIFIED Assessment/Plan OB CONSULT HIGH RISK ? WORKUP IN PROGRESS PULMONARY AND ENDOCRINE WORKUP FOR SOB AND HYPOGLYCEMIA MONITOR LABS AND BGM
--- NOTE | 2017-05-16 16:04 | CONSULT ---
Consult Consult Specialty:: endocrine Referred by:: ernie miranda NP Reason for Consultation:: hypoglycemia - History of Present Illness Chief Complaint: weakness,diaphoretic 16 weeks gestation History of Present Illness: 30 year old female , with unknown LMP and does not age of presented with 3 weeks history of sob and abdominal cramping , that has been worsening recently , the abdominal pain is 6/10 bilateral , and she reports feeling werd movement in her abdomen when she did not feel in her previous pregnancies.She reports chills but no fever, she reports episodes of hypoglycemia,with symptomatic weakness and vertigo - History Source History Provided By: Patient - Past Medical History ...LMP: 09/29/16 ...: Yes - Past Surgical History Past Surgical History: Yes: - Alcohol/Substance Use Hx Alcohol Use: No History of Substance Use: reports: None - Smoking History Smoking history: Never smoked Aproximately how many cigarettes per day: 0 - Social History History of Recent Travel: No Home Medications - Allergies Allergies/Adverse Reactions: Allergies Allergy/AdvReac Type Severity Reaction Status Date / Time No Known Allergies Allergy Verified 05/15/17 16:45 - Home Medications Home Medications: Ambulatory Orders Methylphenidate HCl [Ritalin] 60 mg PO DAILY 10/04/16 Meclizine HCl [Antivert -] 12.5 mg PO TID 7 Days #21 tablet MDD 3 tab 05/15/17 Vit 108/Iron/Folic AC [ One Tablet] 1 each PO DAILY 30 Days # 30 tablet MDD 1 tab 05/15/17 Family Disease History - Family Disease History Family Disease History: Other: Sister (dsa) Review of Systems - Review of Systems Constitutional: reports: Loss of Appetite Eyes: reports: No Symptoms HENT: reports: No Symptoms Neck: reports: No Symptoms Cardiovascular: reports: No Symptoms Respiratory: reports: No Symptoms Gastrointestinal: reports: Bloating Genitourinary: reports: Dysuria, Frequency Breasts: reports: No Symptoms Reported Musculoskeletal: reports: No Symptoms Integumentary: reports: No Symptoms Neurological: reports: Numbness, Weakness Endocrine: reports: Excessive Sweating, Flushing Physical Exam Vital Signs: Vital Signs Temperature 98.1 F 05/16/17 15:19 Pulse Rate 72 05/16/17 15:19 Respiratory Rate 18 05/16/17 15:19 Blood Pressure 113/48 05/16/17 15:19 O2 Sat by Pulse Oximetry (%) 98 05/16/17 08:15 Constitutional: Yes: Anxious Eyes: Yes: EOM Intact HENT: Yes: Normocephalic Neck: Yes: Trachea Midline Cardiovascular: Yes: Regular Rate and Rhythm Respiratory: Yes: CTA Bilaterally Gastrointestinal: Yes: Normal Bowel Sounds ...Rectal Exam: Yes: Deferred Renal/: Yes: WNL Breast(s): Yes: WNL Musculoskeletal: Yes: WNL Extremities: Yes: WNL Edema: No Integumentary: Yes: WNL Neurological: Yes: Alert, Oriented Labs: CBC, BMP 05/16/17 06:24 05/16/17 06:24 Problem List - Problems (1) Abdominal pain during in second trimester Code(s): O26.892 - [facility] RELATED CONDITIONS, SECOND TRIMESTER; R10.9 - UNSPECIFIED ABDOMINAL PAIN (2) Hypoglycemia Code(s): E16.2 - HYPOGLYCEMIA, UNSPECIFIED (3) with 39 completed weeks gestation Code(s): Z3A.39 - 39 WEEKS GESTATION OF Assessment/Plan reactive hypoglycemia hypoglycemia neurohypoglycemia symptoms 16 week gestation Abnormal Lab Results 05/15/17 05/16/17 17:16 06:24 BUN 4 L Creatinine 0.5 L 0.4 L Random Glucose 66 L Calcium 7.9 L Laboratory Tests 05/15/17 05/15/17 05/16/17 17:16 23:54 00:55 Sodium Potassium Chloride Carbon Dioxide Anion Gap BUN Creatinine POC Glucometer 69.14052 172.05913 Random Glucose 66 L Calcium Albumin 3.6 Beta HCG, Quant 23117.1 05/16/17 06:24 Sodium 141 Potassium 3.5 Chloride 107 Carbon Dioxide 25 Anion Gap 9 BUN 4 L Creatinine 0.4 L POC Glucometer Random Glucose 86 Calcium 7.9 L Albumin Beta HCG, Quant plan: nutrtition consult diet and vitamin supplementation check hba1c cpeptide insulin level tsh and free t4
[2017-05-16] MEDS: PRENATAL VITAMINS W/ FOLIC ACID TABLET (FP) PO SCH (21:45)
[2017-05-17 07:53] LABS: ALBUMIN 2.8 g/dl (3.4-5.0); ANION GAP 7 (8-16); BLOOD UREA NITROGEN 4 mg/dL (7-18); CALCIUM 7.8 mg/dL (8.5-10.1); CHLORIDE 107 mmol/L (98-107); CO2 25 mmol/L (21-32); CREATININE 0.5 mg/dL (0.55-1.02); GLUCOSE,RANDOM 84 mg/dL (74-106); POTASSIUM 3.7 mmol/L (3.5-5.1); SGOT/AST 10 U/L (15-37); SGPT/ALT 20 U/L (12-78); SODIUM 139 mmol/L (136-145)
[2017-05-17 08:03] LABS: ALK PHOS 53 U/L (45-117); BILIRUBIN,TOTAL 0.1 mg/dL (0.2-1.0); TOT PROT 5.5 g/dl (6.4-8.2)
[2017-05-17] MEDS: DEXTROSE 5%-WATER - 1,000 ML IV SCH (10:37)
[2017-05-17] MEDS: PRENATAL VITAMINS W/ FOLIC ACID TABLET (FP) PO SCH (10:37)
--- NOTE | 2017-05-17 11:49 | PN ---
Progress Note, Physician Chief Complaint: AWAKE AND NERVOUS NO SUICIDAL OR HOMICIDAL THOUGHTS DENIES CHEST PAIN - Current Medication List Current Medications: Active Medications Dextrose (D5w -) 1,000 mls @ 42 mls/hr IV ASDIR [facility] Last Admin: 05/17/17 10:37 Dose: 42 mls/hr Multivit/Folic Acid/Iron ( Vitamins (Sjr) -) 1 tab PO DAILY [facility] Last Admin: 05/17/17 10:37 Dose: 1 tab - Objective Vital Signs: Vital Signs Temperature 98 F 05/17/17 10:26 Pulse Rate 83 05/17/17 10:26 Respiratory Rate 18 05/17/17 10:26 Blood Pressure 108/64 05/17/17 10:26 O2 Sat by Pulse Oximetry (%) 98 05/17/17 00:00 Constitutional: Yes: Mild Distress Eyes: Yes: WNL HENT: Yes: WNL Neck: Yes: WNL Cardiovascular: Yes: WNL Respiratory: Yes: WNL Gastrointestinal: Yes: WNL Genitourinary: Yes: WNL Musculoskeletal: Yes: WNL Extremities: Yes: WNL Edema: No Peripheral Pulses WNL: Yes Integumentary: Yes: WNL Wound/Incision: Yes: Clean/Dry Neurological: Yes: WNL ...Motor Strength: WNL Psychiatric: Yes: Other Labs: CBC, BMP 05/16/17 06:24 05/17/17 07:10 Problem List - Problems (1) Abdominal pain during in second trimester Code(s): O26.892 - OTH RELATED CONDITIONS, SECOND TRIMESTER; R10.9 - UNSPECIFIED ABDOMINAL PAIN (2) DVT prophylaxis Code(s): [id number] - (3) Hypoglycemia Code(s): E16.2 - HYPOGLYCEMIA, UNSPECIFIED (4) Code(s): Z34.90 - ENCNTR FOR SUPRVSN OF NORMAL , UNSP, UNSP TRIMESTER (5) Shortness of breath during Code(s): O99.89 - OTH DISEASES AND CONDITIONS COMPL PREG/CHLDBRTH; R06.02 - SHORTNESS OF BREATH (6) ADHD (attention deficit hyperactivity disorder) Code(s): F90.9 - ATTENTION-DEFICIT HYPERACTIVITY DISORDER, UNSPECIFIED TYPE (7) Anxiety disorder Code(s): F41.9 - ANXIETY DISORDER, UNSPECIFIED Assessment/Plan OB CONSULT D5 IVF PSYCHIATRY EVAL MONITOR BGM ENDOCRINE CONSULT
--- NOTE | 2017-05-17 15:26 | CON.OBG ---
Consult Consult Specialty:: EQUIPMENT DETAILER Referred by:: Dr. Zayas Reason for Consultation:: Accidental - History of Present Illness Chief Complaint: 32yo P2 @ 16wks, no vaginal bleeding, no pain. desired TOP, now will consider maintaining the . She has no insurance, but needs to register for care - Past Medical History ...LMP: 09/29/16 ...: Yes - Past Surgical History Past Surgical History: Yes: - Alcohol/Substance Use Hx Alcohol Use: No History of Substance Use: reports: None - Smoking History Smoking history: Never smoked Aproximately how many cigarettes per day: 0 - Social History History of Recent Travel: No Home Medications - Allergies Allergies/Adverse Reactions: Allergies Allergy/AdvReac Type Severity Reaction Status Date / Time shellfish derived Allergy Verified 05/17/17 14:31 - Home Medications Home Medications: Ambulatory Orders Methylphenidate HCl [Ritalin] 60 mg PO DAILY 10/04/16 Meclizine HCl [Antivert -] 12.5 mg PO TID 7 Days #21 tablet MDD 3 tab 05/15/17 Vit 108/Iron/Folic AC [ One Tablet] 1 each PO DAILY 30 Days # 30 tablet MDD 1 tab 05/15/17 Family Disease History - Family Disease History Family Disease History: Other: Sister (dsa) Physical Exam-EQUIPMENT DETAILER Vital Signs: Vital Signs Temperature 97.7 F 05/17/17 14:56 Pulse Rate 83 05/17/17 14:56 Respiratory Rate 18 05/17/17 14:56 Blood Pressure 130/84 05/17/17 14:56 O2 Sat by Pulse Oximetry (%) 98 05/17/17 00:00 Labs: CBC, BMP 05/16/17 06:24 05/17/17 07:10
[2017-05-18] MEDS: DEXTROSE 5%-WATER - 1,000 ML IV SCH (05:58)
[2017-05-18] MEDS: PRENATAL VITAMINS W/ FOLIC ACID TABLET (FP) PO SCH (09:39)
--- NOTE | 2017-05-18 11:57 | PN ---
Progress Note (short form) - Note Progress Note: 32 y/o female 16 wk presented to the hospital for hypoglycemia patient stated that she feels weak today and does not feel comfortable going home she wished to stay 1 more day to feel better. she lacks energy according to her and feels sleepy. AAOX3 S1 and s2 RRR abdomen soft non-tender lungs CTA with good air entry PERRLA A/P: c/w IVF obtain thyroid function cbc c/w same management Visit type - Emergency Visit Emergency Visit: No - New Patient This patient is new to me today: Yes Date on this admission: 05/18/17 - Critical Care Critical Care patient: No - Discharge Referral Referred to [facility] Med P.C.: No
--- NOTE | 2017-05-18 19:26 | PN ---
Progress Note (short form) - Note Progress Note: no evidence of hypoglycemia likely reactive hypoglycemia post meal insulin level pending\ Laboratory Results - last 24 hr 05/17/17 05/17/17 05/18/17 20:32 23:56 03:10 POC Glucometer 152 156 114 05/18/17 05/18/17 05/18/17 05:52 09:09 12:34 POC Glucometer 81 130 125 05/18/17 17:12 POC Glucometer 98 plan: nutrition counselling and diet to avoid concentrated sweets follow with insulin and glucose testing Problem List - Problems (1) Abdominal pain during in second trimester Code(s): O26.892 - OTH RELATED CONDITIONS, SECOND TRIMESTER; R10.9 - UNSPECIFIED ABDOMINAL PAIN (2) Hypoglycemia Code(s): E16.2 - HYPOGLYCEMIA, UNSPECIFIED (3) with 39 completed weeks gestation Code(s): Z3A.39 - 39 WEEKS GESTATION OF
[2017-05-19] MEDS: DEXTROSE 5%-WATER - 1,000 ML IV SCH (02:47)
[2017-05-19 08:41] LABS: BASO % 0.5 % (0-2.0); EOS % 1.7 % (0-4.5); HEMATOCRIT 34.7 % (32.4-45.2); HEMOGLOBIN 12.3 GM/dL (10.7-15.3); LYMPH % 13.9 % (8-40); MCH 31.4 pg (25.7-33.7); MCHC 35.6 g/dl (32.0-36.0); MEAN CELL VOLUME 88.4 fl (80-96); MEAN PLT VOLUME 8.4 fl (7.5-11.1); MONO % 5.4 % (3.8-10.2); NEUT % 78.5 % (42.8-82.8); PLATELET COUNT 224 K/MM3 (134-434); RBC 3.92 M/mm3 (3.60-5.2); RDW 14.8 % (11.6-15.6); WHITE BLOOD COUNT 9.4 K/mm3 (4.0-10.0)
[2017-05-19 09:13] LABS: ALBUMIN 2.8 g/dl (3.4-5.0); ANION GAP 7 (8-16); BILIRUBIN,TOTAL 0.1 mg/dL (0.2-1.0); BLOOD UREA NITROGEN 6 mg/dL (7-18); CALCIUM 8.2 mg/dL (8.5-10.1); CHLORIDE 105 mmol/L (98-107); CO2 26 mmol/L (21-32); CREATININE 0.4 mg/dL (0.55-1.02); GLUCOSE,RANDOM 87 mg/dL (74-106); POTASSIUM 4.2 mmol/L (3.5-5.1); SGOT/AST 8 U/L (15-37); SGPT/ALT 19 U/L (12-78); SODIUM 138 mmol/L (136-145)
[2017-05-19 09:22] LABS: ALK PHOS 52 U/L (45-117); TOT PROT 5.7 g/dl (6.4-8.2)
[2017-05-19] MEDS: PRENATAL VITAMINS W/ FOLIC ACID TABLET (FP) PO SCH (09:31)
[2017-05-19 15:59] VITALS: BP 115/68; PULSE 86; TEMP 98.1
--- NOTE | 2017-05-19 17:10 | DS ---
Physical Examination Vital Signs: Vital Signs Temperature 98.1 F 05/19/17 14:58 Pulse Rate 86 05/19/17 14:58 Respiratory Rate 18 05/19/17 14:58 Blood Pressure 115/68 05/19/17 14:58 O2 Sat by Pulse Oximetry (%) 98 05/19/17 08:00 Findings/Remarks: FEELING BETTER , BGM NORMAL Constitutional: Yes: No Distress Eyes: Yes: WNL HENT: Yes: WNL Neck: Yes: WNL Cardiovascular: Yes: WNL Respiratory: Yes: WNL Gastrointestinal: Yes: WNL Renal/: Yes: WNL Musculoskeletal: Yes: WNL Extremities: Yes: WNL Edema: No Peripheral Pulses WNL: Yes Integumentary: Yes: WNL Wound/Incision: Yes: Clean/Dry Neurological: Yes: WNL ...Motor Strength: WNL Psychiatric: Yes: WNL Labs: CBC, BMP 05/19/17 08:25 05/19/17 08:25 Discharge Summary Reason For Visit: HYPOGLYCEMIA Procedures: Principal[facility] Course: ADMITTED FOR WEAKNESS, ANXIETY, LOW BLOOD SUGAR, WORKED UP FOUND TO BE 16 WEEKS GESTATIONAL , WILL NEED OB CLINIC FOLLOW UP MARILYN OUTPATIENT, VITAMINS Condition: Stable - Instructions Diet, Activity, Other Instructions: Please return to the emergency department with any new or worsening symptoms or concerns. Please follow up with your Insurance Writer physician within 72 hours. Please take vitamins daily. [phone] [facility] TOMORROW MORNING 9AM Referrals: Jailyn Mendez MD [Staff Physician] - Vu Zayas MD [Primary Care Provider] - Brendan Martinez MD [Staff Physician] - Disposition: HOME - Home Medications Comprehensive Discharge Medication List: Ambulatory Orders Vit 108/Iron/Folic AC [ One Tablet] 1 each PO DAILY 30 Days # 30 tablet MDD 1 tab 05/15/17 Vitamins (Sjr) - 1 tab PO DAILY tablet 05/19/17
== END 2017-05-19 18:41 | disposition home or self-care (01) ==
LOC: JER 16:38 → JERBED 05-16 00:57 → J5S 05-16 08:51
PROVIDERS: ADMIT Internal Medicine; ATTEND Family Medicine
PROC: 3E0337Z Introduction of Electrolytic and Water Balance Substance into Peripheral Vein, Percutaneous Approach (ICD-10-PCS; principal; 2017-05-16)
DX: O99.810 Abnormal glucose complicating pregnancy (principal); O26.892 Other specified pregnancy related conditions, second trimester; O99.89 Other specified diseases and conditions complicating pregnancy, childbirth and the puerperium; O99.322 Drug use complicating pregnancy, second trimester; Z3A.16 16 weeks gestation of pregnancy; R06.02 Shortness of breath; R10.9 Unspecified abdominal pain; F90.9 Attention-deficit hyperactivity disorder, unspecified type; F11.10 Opioid abuse, uncomplicated; F41.9 Anxiety disorder, unspecified; Z91.013 Allergy to seafood
CPT/HCPCS: 36415; 76801-TC; 76817-TC; 80048; 80053; 80307; 81003; 82533; 82962; 83036; 83525; 83735; 84100; 84439; 84443; 84480; 84481; 84482; 84681; 84702; 85025; 86850; 86900; 86901; 87086; 99285-25; G0378; J7030

== ENCOUNTER 2017-10-21 07:40 | Inpatient (IN) | payer OTHER ==
[2017-10-21 08:14] VITALS: BMI 27.4
[2017-10-21] MEDS ORDERED: morphine SULFATE/Preservative Free 0.5 MG/ML (1cc Syringe) ONE (08:55)
[2017-10-21] MEDS ORDERED: CITRIC ACID/SODIUM CITRATE 30 ML UNIT-DOSE CUP PO ONE (08:58)
[2017-10-21] MEDS ORDERED: ELECTROLYTE-148 SOLN 1,000 ML IV SCH (09:00)
--- NOTE | 2017-10-21 09:04 | HP ---
Past Medical History - Primary Care Physician PCP:: Brendan Martinez - Admission Chief Complaint: 39 weeks, previous c/s, request of repeat c/s History of Present Illness: 32 yo f 39 weeks, with previous c/s, requesting repeat c/s , cx closed , vx -3 mi, fhr cat 1, no contraction , rba discussed History Source: Patient Limitations to Obtaining History: No Limitations - Past Medical History ...: 3 ...Para: 2 ...Term: 2 ...: 0 ...Spon : 0 ...Induced : 0 ...Multiple Gestation: 0 ...LMP: 01/02/17 ... Weeks Gestation by Dates: 41.5 ...EDC by Dates: 10/09/17 ...EDC by Sono: 10/28/17 Heme/Onc: Yes: Anemia - Past Surgical History Past Surgical History: Yes: Hx Myomectomy: No Hx Transabdominal Cerclage: No - Smoking History Smoking history: Never smoked Have you smoked in the past 12 months: No Aproximately how many cigarettes per day: 0 - Alcohol/Substance Use Hx Alcohol Use: No History of Substance Use: reports: None - Social History Usual Living Arrangement: Yes: With Spouse History of Recent Travel: No Home Medications - Allergies Allergies/Adverse Reactions: Allergies Allergy/AdvReac Type Severity Reaction Status Date / Time shellfish derived Allergy Verified 10/21/17 08:14 - Home Medications Home Medications: Ambulatory Orders Vitamins (Sjr) - 1 tab PO DAILY tablet 05/19/17 Family Disease History - Family Disease History Family Disease History: Other: Sister (dsa) Review of Systems - Review of Systems Constitutional: reports: No Symptoms Eyes: reports: No Symptoms HENT: reports: No Symptoms Neck: reports: No Symptoms Cardiovascular: reports: No Symptoms Respiratory: reports: No Symptoms Gastrointestinal: reports: No Symptoms Genitourinary: reports: No Symptoms Breasts: reports: No Symptoms Reported Musculoskeletal: reports: No Symptoms Integumentary: reports: No Symptoms Endocrine: reports: No Symptoms Hematology/Lymphatic: reports: No Symptoms Psychiatric: reports: No Symptoms Physical Exam - Maternity Vital Signs: Vital Signs Temperature 98.8 F 10/21/17 07:40 Pulse Rate 87 09/11/18 07:40 Respiratory Rate 18 10/21/17 07:40 Blood Pressure 118/68 10/21/17 07:40 O2 Sat by Pulse Oximetry (%) Constitutional: Yes: Well Nourished, No Distress, Calm Eyes: Yes: WNL, Conjunctiva Clear, EOM Intact HENT: Yes: WNL, Atraumatic, Normocephalic Neck: Yes: WNL, Supple, Trachea Midline Cardiovascular: Yes: WNL, Regular Rate and Rhythm Breast(s): Yes: WNL - Abdominal Exam/OB Number of Fetuses: Single Presentation: Vertex Contractions: No Intensity: Unaware Monitor Mode: External Heart Rate Location: [facility] Category: I Accelerations: Uniform - Vaginal Exam/OB Vaginal Bleediing: No Speculum Exam: No Dilatation (cm): 0 Effacement (%): o Amniotic Membrane Status: Intact Presentation: Vertex/Position Station: -3 - Physical Exam Musculoskeletal: Yes: WNL Edema: LLE: Trace, RLE: Trace Deep Tendon Reflex Grade: Normal +2 ...Motor Strength: WNL Psychiatric: Yes: WNL Problem List - Problems (1) with 39 completed weeks gestation Code(s): Z3A.39 - 39 WEEKS GESTATION OF (2) Previous section complicating Code(s): O34.21 - MATERNAL CARE FOR SCAR FROM PREVIOUS * DO NOT USE * Assessment/Plan for repeat c/s, rba discussed
[2017-10-21 09:37] LABS: COCAINE, UR NEGATIVE ng/ml (CUTOFF=300); METHADONE, UR NEGATIVE ng/ml (CUTOFF=300); OPIATES, URI NEGATIVE ng/ml (CUTOFF=300); PHENCYCLIDINE,URINE NEGATIVE ng/ml (CUTOFF=25); URINE AMPHETAMINES NEGATIVE ng/ml (CUTOFF=500); URINE BARBITURATES NEGATIVE ng/ml (CUTOFF=200); URINE BENZODIAZEPINES NEGATIVE ng/ml (CUTOFF=200)
[2017-10-21] MEDS ORDERED: IBUPROFEN 600 MG TABLET (FP) PO PRN (10:23)
[2017-10-21] MEDS ORDERED: ONDANSETRON 4 MG/2 ML VIAL IVPUSH PRN (10:23)
[2017-10-21] MEDS ORDERED: diphenhydrAMINE HCL 25 MG CAPSULE (FP) PO PRN (10:24)
[2017-10-21] MEDS ORDERED: BENZOCAINE 20% 57 GM BOTTLE TP PRN (10:24)
[2017-10-21] MEDS ORDERED: oxyCODONE HCL 5 MG TABLET PO PRN (10:24)
[2017-10-21] MEDS ORDERED: METHYLERGONOVINE MALEATE 0.2 MG/1 ML AMP IM PRN (10:24)
[2017-10-21] MEDS ORDERED: BENZOCAINE 28 GM HEMORRHOIDAL OINTMENT PR PRN (10:24)
[2017-10-21] MEDS ORDERED: WITCH HAZEL 50% (TUCKS) 40 PAD/JAR PAD TP PRN (10:24)
[2017-10-21] MEDS ORDERED: IBUPROFEN 800 MG/8 ML IJ IVPB PRN (10:24)
[2017-10-21] MEDS ORDERED: OXYTOCIN 20 UNITS in 0.9% NS 20 UNIT/1,000 ML INFUS.BAG IV SCH ×2 (10:30→11:30)
--- NOTE | 2017-10-21 11:25 | SURG ---
Surgery Clutch Assembler Note Clutch Assembler: Gerardo Wheat MD Date of Service: 10/21/17 Diagnosis: with 39 completed weeks gestation Procedure: repeat I was present for the entirety of the operative procedure. For further detail, please refer to operative report.
--- NOTE | 2017-10-21 11:50 | OP ---
DATE OF OPERATION: 10/21/2017 PREOPERATIVE DIAGNOSIS: , 39 weeks; 2 previous sections, requests a repeat section. POSTOPERATIVE DIAGNOSIS: , 39 weeks; 2 previous sections, requests a repeat section. PROCEDURE: Repeat low-segment transverse section. SURGEON: Brendan Motta MD EMPLOYEE RELATIONS REPRESENTATIVE: Gerardo Wheat MD ANESTHESIA: Spinal. ANESTHESIOLOGIST: Sincere Chand MD ESTIMATED BLOOD LOSS: 500 mL FINDINGS: Live baby, Apgars 9 and 9, ROT position. OPERATING COURSE: Patient was taken to the operating room. Under adequate spinal anesthesia, abdomen and perineum were prepped and draped. Pfannenstiel abdominal skin incision was made. Abdominal wall was cut layer by layer until peritoneum was exposed and incised. Upon entering the abdominal cavity, lower uterine segment was identified and uterovesical fold of peritoneum established. Bladder was pushed down. Then, with the lower blade of the [place] retractor in the pelvis, a low transverse uterine incision was made. Incision extended laterally. Amniotic sac was entered, clear fluid. Head delivered from right occiput transverse position. Nasopharynx was suctioned. Cord around the neck x1, reduced. A live baby was delivered without any difficulty. Placenta was delivered manually. Uterine cavity was cleaned of all remaining tissue. Uterine incision was closed in 2 layers, first layer with 0 Biosyn continuous suture, the second layer with 0 Biosyn imbricating the first layer. Bladder flap was closed with 0 Biosyn continuous suture. Both tubes and ovaries were checked, were normal. No active bleeding was seen. All the lap packs, sponge, and instrument counts were correct. Then, peritoneum was closed with 0 Biosyn continuous suture. Muscles were brought together with interrupted sutures of 0 Biosyn. Fascia was closed with 0 Biosyn continuous suture, subcutaneous fat with interrupted suture of 0 Biosyn, and the skin was closed with 4-0 Biosyn subcuticular continuous suture. Patient tolerated the procedure well, left the OR in good condition. BRENDAN MOTTA M.D. /[id number]
[2017-10-21] MEDS ORDERED: DEXTROSE 5%-WATER - 50 ML IVPB ONE (17:01)
[2017-10-21] MEDS ORDERED: ceFAZolin SODIUM 1 GM VIAL ONE (17:01)
[2017-10-21] MEDS: CEFAZOLIN 1 GM in DEXTROSE 5%-WATER - 50 ML IVPB SCH (17:07)
[2017-10-21] MEDS: IBUPROFEN 600 MG TABLET (FP) PO PRN (21:25)
[2017-10-21] MEDS: ACETAMINOPHEN 325 MG TABLET (FP) PO PRN (21:26)
[2017-10-21] MEDS: DEXTROSE 5%-LACTATED RINGERS 1,000 ML IV SCH (21:27)
[2017-10-22] MEDS ORDERED: ceFAZolin SODIUM 1 GM VIAL ONE (02:12)
[2017-10-22] MEDS ORDERED: DEXTROSE 5%-WATER - 50 ML IVPB ONE (02:12)
[2017-10-22] MEDS: CEFAZOLIN 1 GM in DEXTROSE 5%-WATER - 50 ML IVPB SCH (02:15)
[2017-10-22] MEDS: ACETAMINOPHEN 325 MG TABLET (FP) PO PRN ×4 (02:27→20:02)
[2017-10-22] MEDS: IBUPROFEN 600 MG TABLET (FP) PO PRN ×3 (02:28→20:01)
[2017-10-22] MEDS: DEXTROSE 5%-LACTATED RINGERS 1,000 ML IV SCH (06:12)
[2017-10-22 08:09] LABS: BASO % 0.8 % (0-2.0); EOS % 2.7 % (0-4.5); HEMATOCRIT 33.1 % (32.4-45.2); HEMOGLOBIN 11.1 GM/dL (10.7-15.3); LYMPH % 15.1 % (8-40); MCH 31.3 pg (25.7-33.7); MCHC 33.6 g/dl (32.0-36.0); MEAN CELL VOLUME 93.1 fl (80-96); MEAN PLT VOLUME 8.5 fl (7.5-11.1); MONO % 7.6 % (3.8-10.2); NEUT % 73.8 % (42.8-82.8); PLATELET COUNT 209 K/MM3 (134-434); RBC 3.55 M/mm3 (3.60-5.2)
[2017-10-22] MEDS: oxyCODONE HCL 5 MG TABLET PO PRN ×3 (08:20→20:01)
[2017-10-22] MEDS: SIMETHICONE 80 MG TAB.CHEW (FP) PO PRN ×3 (08:21→20:01)
--- NOTE | 2017-10-22 08:30 | PN ---
Post Progress Note - Subjective Subjective: c/o pain scale 8/10 not voided yet , after jacome is taken out Post Day: 1 Type of Delivery: Repeat C/S Vital Signs: Vital Signs Temperature 97.7 F 10/22/17 06:00 Pulse Rate 59 L 10/22/17 06:00 Respiratory Rate 18 10/22/17 08:00 Blood Pressure 111/71 10/22/17 06:00 O2 Sat by Pulse Oximetry (%) Breast Exam: Yes: Soft, Other (plans to BF ). No: Engorged Uterus: Yes: Fundus Firm, Fundus below umbilicus, Non-tender Incision: Yes: Dressing dry and intact. No: Redness, Oozing Abdomen/GI: Yes: Abdomen soft (bs active ), Tolerating PO (clear fluids ). No: Abdominal Distention, Tender, Passing flatus Lochia: Yes: Rubra Lochia, amount: Moderate Extremities: Yes: Calves non-tender Perineum: Yes: Intact Activity: Other (not oob yet ) - Labs Labs: CBC WBC 9.0 K/mm3 (4.0-10.0) 10/22/17 07:15 RBC 3.55 M/mm3 (3.60-5.2) L 10/22/17 07:15 Hgb 11.1 GM/dL (10.7-15.3) 10/22/17 07:15 Hct 33.1 % (32.4-45.2) 10/22/17 07:15 MCV 93.1 fl (80-96) 10/22/17 07:15 MCH 31.3 pg (25.7-33.7) 10/22/17 07:15 MCHC 33.6 g/dl (32.0-36.0) 10/22/17 07:15 RDW 15.0 % (11.6-15.6) 10/22/17 07:15 Plt Count 209 K/MM3 (134-434) 10/22/17 07:15 MPV 8.5 fl (7.5-11.1) 10/22/17 07:15 Absolute Neuts (auto) 6.6 K/mm3 (1.5-8.0) 10/22/17 07:15 Neutrophils % 73.8 % (42.8-82.8) 10/22/17 07:15 Lymphocytes % 15.1 % (8-40) 10/22/17 07:15 Monocytes % 7.6 % (3.8-10.2) 10/22/17 07:15 Eosinophils % 2.7 % (0-4.5) 10/22/17 07:15 Basophils % 0.8 % (0-2.0) 10/22/17 07:15 Nucleated RBC % 0 % (0-0) 10/22/17 07:15 Other Findings, Remarks: rs cta urine out put documented 400 + 450 ml Problem List - Problems (1) delivery delivered Code(s): O82 - ENCOUNTER FOR DELIVERY WITHOUT INDICATION (2) Encounter for visit Code(s): Z39.2 - ENCOUNTER FOR ROUTINE FOLLOW-UP Assessment/Plan stable . plan ct po care encourage po fluids, ambulation, deep breathing
[2017-10-22] MEDS: ENOXAPARIN NA (PORCINE) 40 MG/0.4 ML DISP.SYRIN SQ SCH (10:10)
[2017-10-22] MEDS ORDERED: BISACODYL 10 MG SUPP.RECT RC PRN (10:24)
--- NOTE | 2017-10-22 12:36 | PN ---
Progress Note (short form) - Note Progress Note: Anesthesia POD#1 S/P under spinal anesthesia and Duramorph VSS,no nausea/vomiting,pain is bearable,legs strength normal. No complications seen. La Mayes MD.
[2017-10-22] MEDS: SENNOSIDES/DOCUSATE COMBO (SENNA PLUS) TABLET (UD) PO PRN (20:02)
[2017-10-23] MEDS: DEXTROSE 5%-LACTATED RINGERS 1,000 ML IV SCH (00:18)
[2017-10-23] MEDS: IBUPROFEN 600 MG TABLET (FP) PO PRN ×3 (06:13→21:05)
[2017-10-23] MEDS: SIMETHICONE 80 MG TAB.CHEW (FP) PO PRN ×3 (06:13→21:03)
[2017-10-23] MEDS: oxyCODONE HCL 5 MG TABLET PO PRN ×2 (06:14→12:39)
[2017-10-23] MEDS: ACETAMINOPHEN 325 MG TABLET (FP) PO PRN ×3 (06:14→21:04)
[2017-10-23] MEDS: ENOXAPARIN NA (PORCINE) 40 MG/0.4 ML DISP.SYRIN SQ SCH (09:42)
--- NOTE | 2017-10-23 14:58 | PN ---
Post Progress Note - Subjective Subjective: 32 yo Para 3 status post repeat , seen and evaluated. Doing well. Post Day: 2 Type of Delivery: Repeat C/S Vital Signs: Vital Signs Temperature 98.4 F 10/22/17 22:00 Pulse Rate 69 10/22/17 22:00 Respiratory Rate 18 10/22/17 22:00 Blood Pressure 110/81 10/22/17 22:00 O2 Sat by Pulse Oximetry (%) Breast Exam: Yes: Soft Uterus: Yes: Fundus Firm Incision: Yes: Dressing dry and intact Abdomen/GI: Yes: Abdomen soft, Tolerating PO Lochia: Yes: Rubra Lochia, amount: Small Extremities: Yes: Calves non-tender Perineum: Yes: Intact Activity: Ambulating - Labs Labs: CBC WBC 9.0 K/mm3 (4.0-10.0) 10/22/17 07:15 RBC 3.55 M/mm3 (3.60-5.2) L 10/22/17 07:15 Hgb 11.1 GM/dL (10.7-15.3) 10/22/17 07:15 Hct 33.1 % (32.4-45.2) 10/22/17 07:15 MCV 93.1 fl (80-96) 10/22/17 07:15 MCH 31.3 pg (25.7-33.7) 10/22/17 07:15 MCHC 33.6 g/dl (32.0-36.0) 10/22/17 07:15 RDW 15.0 % (11.6-15.6) 10/22/17 07:15 Plt Count 209 K/MM3 (134-434) 10/22/17 07:15 MPV 8.5 fl (7.5-11.1) 10/22/17 07:15 Absolute Neuts (auto) 6.6 K/mm3 (1.5-8.0) 10/22/17 07:15 Neutrophils % 73.8 % (42.8-82.8) 10/22/17 07:15 Lymphocytes % 15.1 % (8-40) 10/22/17 07:15 Monocytes % 7.6 % (3.8-10.2) 10/22/17 07:15 Eosinophils % 2.7 % (0-4.5) 10/22/17 07:15 Basophils % 0.8 % (0-2.0) 10/22/17 07:15 Nucleated RBC % 0 % (0-0) 10/22/17 07:15 Assessment/Plan Status post repeat Stable Continue routine post op care
[2017-10-23] MEDS: SENNOSIDES/DOCUSATE COMBO (SENNA PLUS) TABLET (UD) PO PRN (21:05)
[2017-10-24] MEDS: SIMETHICONE 80 MG TAB.CHEW (FP) PO PRN ×3 (06:39→20:21)
[2017-10-24] MEDS: ACETAMINOPHEN 325 MG TABLET (FP) PO PRN ×3 (06:39→20:21)
[2017-10-24] MEDS: IBUPROFEN 600 MG TABLET (FP) PO PRN ×3 (06:41→20:23)
[2017-10-24 07:06] LABS: BASO % 0.7 % (0-2.0); EOS % 3.8 % (0-4.5); HEMATOCRIT 34.4 % (32.4-45.2); HEMOGLOBIN 11.7 GM/dL (10.7-15.3); LYMPH % 24.6 % (8-40); MCH 31.5 pg (25.7-33.7); MCHC 33.9 g/dl (32.0-36.0); MEAN PLT VOLUME 8.7 fl (7.5-11.1); MONO % 7.3 % (3.8-10.2); NEUT % 63.6 % (42.8-82.8); PLATELET COUNT 246 K/MM3 (134-434); RDW 14.4 % (11.6-15.6); WHITE BLOOD COUNT 6.4 K/mm3 (4.0-10.0)
--- NOTE | 2017-10-24 07:33 | PN ---
Progress Note (short form) - Note Progress Note: pod 3 doind well, no excess vaginal bleeding , voids ok Last Vital Signs Temp Pulse Resp BP Pulse Ox 98.2 F 56 L 18 116/71 10/23/17 22:00 10/23/17 22:00 10/23/17 22:00 10/23/17 22:00 abdomen soft, uterus firm, BS present incision dry, clean , healing well no calf tenderness no excess vaginal bleeding plan cbc , ambulate pain management Problem List - Problems (1) with 39 completed weeks gestation Code(s): Z3A.39 - 39 WEEKS GESTATION OF (2) Previous section complicating Code(s): O34.21 - MATERNAL CARE FOR SCAR FROM PREVIOUS * DO NOT USE *
[2017-10-24] MEDS: ENOXAPARIN NA (PORCINE) 40 MG/0.4 ML DISP.SYRIN SQ SCH (09:50)
[2017-10-25] MEDS: SIMETHICONE 80 MG TAB.CHEW (FP) PO PRN (06:20)
[2017-10-25] MEDS: ACETAMINOPHEN 325 MG TABLET (FP) PO PRN (06:20)
[2017-10-25] MEDS: IBUPROFEN 600 MG TABLET (FP) PO PRN (06:21)
[2017-10-25] MEDS: ENOXAPARIN NA (PORCINE) 40 MG/0.4 ML DISP.SYRIN SQ SCH ×2 (09:16→09:19)
--- NOTE | 2017-10-25 10:23 | PN ---
Post Progress Note Post Day: 4 Type of Delivery: Repeat C/S Vital Signs: Vital Signs Temperature 98 F 10/24/17 22:00 Pulse Rate 53 L 10/24/17 22:00 Respiratory Rate 18 10/24/17 22:00 Blood Pressure 121/53 10/24/17 22:00 O2 Sat by Pulse Oximetry (%) Breast Exam: Yes: Soft Abdomen/GI: Yes: Abdomen soft Lochia: Yes: Rubra Lochia, amount: Small Extremities: Yes: Calves non-tender Perineum: Yes: Intact Activity: Ambulating - Labs Labs: CBC WBC 6.4 K/mm3 (4.0-10.0) 10/24/17 06:00 RBC 3.70 M/mm3 (3.60-5.2) 10/24/17 06:00 Hgb 11.7 GM/dL (10.7-15.3) 10/24/17 06:00 Hct 34.4 % (32.4-45.2) 10/24/17 06:00 MCV 93.0 fl (80-96) 10/24/17 06:00 MCH 31.5 pg (25.7-33.7) 10/24/17 06:00 MCHC 33.9 g/dl (32.0-36.0) 10/24/17 06:00 RDW 14.4 % (11.6-15.6) 10/24/17 06:00 Plt Count 246 K/MM3 (134-434) 10/24/17 06:00 MPV 8.7 fl (7.5-11.1) 10/24/17 06:00 Absolute Neuts (auto) 4.1 K/mm3 (1.5-8.0) 10/24/17 06:00 Neutrophils % 63.6 % (42.8-82.8) 10/24/17 06:00 Lymphocytes % 24.6 % (8-40) D 10/24/17 06:00 Monocytes % 7.3 % (3.8-10.2) 10/24/17 06:00 Eosinophils % 3.8 % (0-4.5) 10/24/17 06:00 Basophils % 0.7 % (0-2.0) 10/24/17 06:00 Nucleated RBC % 0 % (0-0) 09/14/18 06:00 Assessment/Plan as above dc home
[2017-10-25 10:58] VITALS: BP 137/67; PULSE 80; TEMP 98.2
--- NOTE | 2017-10-25 16:23 | DS ---
Physical Exam-CATTLE BROKER Vital Signs: Vital Signs Temperature 98.2 F 10/25/17 10:00 Pulse Rate 80 10/25/17 10:00 Respiratory Rate 20 10/25/17 10:00 Blood Pressure 137/67 10/25/17 10:00 O2 Sat by Pulse Oximetry (%) Constitutional: Yes: Well Nourished, No Distress, Calm Eyes: Yes: WNL, Conjunctiva Clear, EOM Intact HENT: Yes: WNL, Atraumatic, Normocephalic Neck: Yes: WNL, Supple, Trachea Midline Cardiovascular: Yes: WNL, Regular Rate and Rhythm Respiratory: Yes: WNL, Regular, CTA Bilaterally Gastrointestinal: Yes: WNL ...Rectal Exam: Yes: WNL Renal/: Yes: WNL ....Post : Yes: Uterus firm, Uterus non-tender, Slight lochia rubra Breast(s): Yes: WNL Musculoskeletal: Yes: WNL Extremities: Yes: WNL Edema: LLE: Trace, RLE: Trace Integumentary: Yes: WNL Wound/Incision: Yes: Clean/Dry, Well Approximated, Andrzej Intact Neurological: Yes: WNL, Alert, Oriented ...Motor Strength: WNL Psychiatric: Yes: WNL, Alert, Oriented Labs: CBC, BMP 10/24/17 06:00 Delivery - Delivery Section: Repeat (no complication) Type of Anesthesia: Spinal EBL (cc): 500 Delivery, Single - Stages of Labor Date of Delivery: 10/21/17 Time of Delivery: 09:33 Time Placenta Delivered: 09:34 Placenta: Yes: Expressed - Condition of [employer] Airspace Control Officer/Key Account Executive Present: Yes Name: Lyle Antoine Gender: Male Weight: 7 lb 12 oz Position: OA Total Hours ROM (Hrs/Mins): 2M - 1 Minute Total Score: 9 5 Minutes Total Score: 9 - [place] Feeding Plan Initial Plan: Elected not to breastfeed exclusively throughout hospitalization Discharge Summary Reason For Visit: ADMIT C SECTION Current Active Problems delivery delivered (Acute) Encounter for visit (Acute) with 39 completed weeks gestation (Acute) Condition: Good - Instructions Diet, Activity, Other Instructions: regular diet, follow up hrh 1 week, if fever, pain, heavy vaginal bleeding call Referrals: Brendan Martinez MD [Staff Physician] - Disposition: HOME - Home Medications Comprehensive Discharge Medication List: Ambulatory Orders Vitamins (Sjr) - 1 tab PO DAILY tablet 05/19/17 Ibuprofen [Motrin -] 600 mg PO QID #28 tablet 10/23/17
--- NOTE | 2017-10-29 16:34 | PATH ---
Surgical Pathology Report Patient Name: LUCÍA MCCORMICK [facility]. Rec. #: [id number] /Age/Gender: 1985 (Age: 32) / F Account: [id number] Location: [facility] OBS/WICK TENDER Taken: 10/21/2017 Received: 10/22/2017 Reported: 10/29/2017 Physicians: Brendan Martinez M.D. Specimen(s) Received PLACENTA Clinical History , 39 gestational weeks, repeat scheduled Final Diagnosis PLACENTA: THIRD TRIMESTER PLACENTA WITH ONE FOCUS OF INFARCTION (1.5 CM IN GREATEST DIMENSION). TRIVASCULAR CORD. MEMBRANES WITH NO DIAGNOSTIC ABNORMALITIES. Electronically Signed Estela Tolentino M.D. Gross Description The specimen is received fresh labeled placenta and is a 522 gram, 16.0 x 15.0 x 2.9 cm. placenta with attached membranes and umbilical cord. The attached membranes are cristobal, translucent with focal opacities and insert marginally. The umbilical cord measures 33 cm. in length and averages 1.1 cm. in diameter. The cord inserts eccentrically, 2 cm. to the nearest margin. No true knots or strictures are identified. Cut surface of the umbilical cord reveals 3 vessels. The surface is flores blue with moderate fibrin deposition and appropriate caliber vessels. The maternal surface is red-brown with focal defects. Sectioning reveals a 1.5 cm in greatest dimension cristobal intraparenchymal lesion. The remaining placental parenchyma is red-brown and spongy. Wire Weaver Helper sections are submitted in 4 cassettes as follows: 1-membrane roll and umbilical cord; 2-lesion; 3-4-full thickness sections of placenta. 10/28/2017 [facility]10/28/2017
== END 2017-10-25 15:35 | disposition home or self-care (01) | DRG 540 ==
LOC: JLDR 07:40 → J3W 11:50
PROVIDERS: ADMIT Obstetrics & Gynecology; ATTEND Obstetrics & Gynecology
PROC: 10D00Z1 Extraction of Products of Conception, Low, Open Approach (ICD-10-PCS; principal; 2017-10-21)
DX: O34.211 Maternal care for low transverse scar from previous cesarean delivery (principal); O69.81X0 Labor and delivery complicated by cord around neck, without compression, not applicable or unspecified; O99.013 Anemia complicating pregnancy, third trimester; D64.9 Anemia, unspecified; Z3A.39 39 weeks gestation of pregnancy; Z37.0 Single live birth
CPT/HCPCS: 36415; 80307; 85025; 88307-TC

== ENCOUNTER 2018-06-20 07:05 | Emergency (ER) | payer OTHER ==
[2018-06-20 07:16] VITALS: BP 102/75; PULSE 78; TEMP 98; BMI 26.5
--- NOTE | 2018-06-20 08:07 | PDOC ---
History of Present Illness - General Chief Complaint: Psychiatric Stated Complaint: CHEST PAIN, SOB Time Seen by Provider: 06/20/18 07:27 History Source: Patient Exam Limitations: No Limitations - History of Present Illness Initial Comments: 06/20/18 08:12 HPI 33-year-old female with history of Sjogren's, not on medications, hypoglycemia, anxiety, prior opioid dependence, ADHD presenting with acute onset of chest pain or shortness of breath at 3 AM. She had a restless night, difficulty sleeping due to her recent stressors. She notes she is currently going through a custody hope and divorce from her over the last several months. She notes her chest pain as intermittently sharp, tight and squeezing, no radiation, no alleviating or exacerbating factors. No weakness or paresthesias or radiation down the arm, jaw or shoulder. Chronically over the past one year she has been having intermittent palpitations , low blood sugar and generalized fatigue but hasn't seen her primary doctor for a year. Denies fever, chills, AMS, syncope, cough or congestion, palpitation, dizziness , weakness, paresthesia, N, V, D, abdominal pain, bladder and bowel problems, leg swelling, No sick contacts or travel. No new changes in medications. No suspicious food intake. No ocp use. No immobilization or long travel. Denies . Allergies: None Past Medical History: Sjogren's, not on medications, hypoglycemia, anxiety Social history: Lives with family. No tobacco, ETOH or drug use. Surgical history: C section Meds: as documented in EMR Review of systems Constitutional: no fevers or chills. HEENT: no headache or dizziness. No congestion. No visual/hearing disturbances. CVS: no syncope. No palpitations. +chest pain Resp: + sob. No cough. Gastrointestinal: no abdominal pain, nausea or vomiting. Genitourinary: no urinary sx, hematuria. MUSCULOSKELETAL: No joint pain and swelling. No neck or back pain. SKIN: no redness or skin changes, no discharge, no rash. No wounds. Hematologic: no easy bruising/bleeding. NEUROLOGIC: No headache, dizziness, LOC or altered mental status. No weakness, numbness or tingling. Psych: +anxiety Allergic/Immunologic: no allergies All other systems reviewed and negative, or as documented in HPI. Physical exam: General: Well appearing, awake and alert, NAD. HEENT: NCAT, PERRL, EOMI, clear conjunctiva, anicteric, moist mucus membranes, clear oropharynx, no oral lesions.. Neck: neck supple, FROM Resp: CTAB, normal and even respirations, no respiratory distress CVS: RRR, no murmurs, 2+ peripheral pulses throughout, no peripheral edema Abdomen: soft, NTND, no peritoneal signs. Back: nontender, normal inspection and ROM MSK: no edema, GUERRERO x4, ROM intact. No clubbing or cyanosis. normal bulk and tone. Neuro: alert, no focal neuro deficits. Oriented appropriately. Psych: +anxious, no tremors. Skin: warm and well perfused, cap refill <2 sec, normal color 06/20/18 08:13 Past History - Past Medical History Allergies/Adverse Reactions: Allergies Allergy/AdvReac Type Severity Reaction Status Date / Time shellfish derived Allergy Verified 06/20/18 07:16 Anemia: Yes (no medication) Asthma: No Cancer: No Cardiac Disorders: No CVA: No COPD: No CHF: No Dementia: No Diabetes: No GI Disorders: No Disorders: No HTN: No Hypercholesterolemia: No Kidney Stones: No Liver Disease: No Seizures: No Thyroid Disease: No - Reproductive History (#): 3 Para: 2 PID: No - Immunization History Immunization Up to Date: Yes - Suicide/Smoking/Psychosocial Hx Smoking Status: No Smoking History: Never smoked Have you smoked in the past 12 months: No Number of Cigarettes Smoked Daily: 0 Hx Alcohol Use: No Drug/Substance Use Hx: No Substance Use Type: Opiates Hx Substance Use Treatment: No *Physical Exam - Vital Signs Last Vital Signs Temp Pulse Resp BP Pulse Ox 98 F 78 14 102/75 100 06/20/18 07:14 06/20/18 07:14 06/20/18 07:14 06/20/18 07:14 06/20/18 07:14 Heart Score/ECG Review #1 ECG reviewed & interpreted by me at: 07:15 General ECG Interpretation: Sinus Rhythm, Normal Rate, Normal Intervals, No acute ischemic changes Compared to previous ECG there are: Other 06/20/18 08:16 EKG normal sinus rhythm at 74 bpm, no interval abnormalities, narrow QRS, ST and T wave segments and morphology normal. Nonspecific T wave abnormalities with isolated TWF in III only, no contiguous lead changes. ED Treatment Course - LABORATORY CBC & Chemistry Diagram: 06/20/18 07:45 06/20/18 07:45 Medical Decision Making - Medical Decision Making 06/20/18 08:14 See HPI for details Vital signs reviewed, wnl. DDx chest pain: ACS, coronary vasospasm, NSTEMI, arrhythmia, unstable angina, PE , dissection, anxiety reaction, PUD, esophageal spasm, GERD, gastritis, costochondritis, pneumonia, pleurisy, pericarditis/myocarditis. dehydration, electrolyte/metabolic derangements. Prior notes reviewed, including admissions, discharges and consultations. laboratory results and imaging reviewed, basic labs and lytes wnl Cardiac panel_neg trop, reassuring. EKG normal sinus rhythm at 74 bpm, no interval abnormalities, narrow QRS, ST and T wave segments and morphology normal. Nonspecific T wave abnormalities / flattening in III only, unchanged. ED course - no acute events. no cp, feels well and improved, resting comfortably in bed.. no si or hi, denies drug use, some anxiety with stressors noted. doubt cardiac with neg trop and unremarkable EKG. PERC neg, so low clinical suspicion for PE. dimer not indicated at this time. no neuro deficits or sx to suggest dissection Dispo: Pt informed of my clinical impression, treatment recommendations and disposition plan. All questions answered to patient's satisfaction and expressed understanding and comfort with this. Reasons for returning to the ED sooner discussed including new or persistent/worsening symptoms with the patient otherwise, follow up with primary care physician. At the time of discharge, the patient is alert, clinically improved, tolerating po and verbalizes understanding of instructions, satisfied with the care received and felt comfortable with the plan. Patient does not suffer from an acute life- threatening medical condition at this time and is safe for outpatient follow- up. 06/20/18 08:44 *DC/Admit/Observation/Transfer Diagnosis at time of Disposition: Chest pain - Discharge Dispostion Disposition: HOME Condition at time of disposition: Improved Decision to Admit order: No - Referrals Referrals: Vu Zayas MD [Primary Care Provider] - - Patient Instructions Printed Discharge Instructions: DI for Atypical Chest Pain Additional Instructions: 1) Please follow-up with your primary care doctor in the next 1-2 days. Please call tomorrow for for any urgent issues. 2) You were given a copy of the tests performed today. Please bring the results with you and review them with your primary care doctor. Your laboratory / imaging results were normal, including cardiac enzymes. 3) If you have any worsening of symptoms or any other concerns please return to the ED immediately. Return if worsening symptoms including fevers, headache, vomiting, visual or hearing disturbances, abdominal pain, chest pain, shortness of breath, syncope, dehydration, inability to take things by mouth/vomiting, altered mental status, or worsening concerning symptoms. Stay well hydrated and rest adequately. Make an appointment with your primary doctor to discuss your symptoms and management.. If you cannot follow-up with your primary care doctor please return to the ED - Post Discharge Activity
[2018-06-20 08:12] LABS: BASO % 1.1 % (0-2.0); EOS % 1.9 % (0-4.5); HEMATOCRIT 37.8 % (32.4-45.2); HEMOGLOBIN 12.7 GM/dL (10.7-15.3); LYMPH % 26.4 % (8-40); MCH 30.8 pg (25.7-33.7); MCHC 33.6 g/dl (32.0-36.0); MEAN CELL VOLUME 91.6 fl (80-96); MEAN PLT VOLUME 8.8 fl (7.5-11.1); NEUT % 62.6 % (42.8-82.8); PLATELET COUNT 277 K/MM3 (134-434); RBC 4.13 M/mm3 (3.60-5.2); RDW 13.3 % (11.6-15.6); WHITE BLOOD COUNT 4.4 K/mm3 (4.0-10.0)
[2018-06-20 08:36] LABS: ALBUMIN 3.8 g/dl (3.4-5.0); ALK PHOS 67 U/L (45-117); ANION GAP 5 MMOL/L (8-16); BILIRUBIN,TOTAL 0.4 mg/dL (0.2-1); BLOOD UREA NITROGEN 9 mg/dL (7-18); CALCIUM 8.6 mg/dL (8.5-10.1); CHLORIDE 106 mmol/L (98-107); CO2 26 mmol/L (21-32); CREATININE 0.7 mg/dL (0.55-1.3); GLUCOSE,RANDOM 92 mg/dL (74-106); SGOT/AST 14 U/L (15-37); SGPT/ALT 20 U/L (13-61); SODIUM 137 mmol/L (136-145); TOT PROT 6.7 g/dl (6.4-8.2)
--- NOTE | 2018-06-20 11:40 | EKG ---
Test Reason : Blood Pressure : / mmHG Vent. Rate : 074 BPM Atrial Rate : 074 BPM P-R Int : 144 ms QRS Dur : 080 ms QT Int : 368 ms P-R-T Axes : 023 012 029 degrees QTc Int : 408 ms NORMAL SINUS RHYTHM NORMAL ECG WHEN COMPARED WITH ECG OF 20-JUL-2014 01:23, NO SIGNIFICANT CHANGE WAS FOUND Confirmed by LINDSEY CASILLAS MD ([id number]) on 06/20/2018 11:39:51 AM Referred By: Confirmed By:LINDSEY CASILLAS MD
== END 2018-06-20 09:00 | disposition home or self-care (01) ==
LOC: JER 07:05
DX: R07.9 Chest pain, unspecified (principal); M35.00 Sjogren syndrome, unspecified; E16.2 Hypoglycemia, unspecified; F41.9 Anxiety disorder, unspecified
CPT/HCPCS: 36415; 80053; 82550; 84484; 85025; 93005; 93010; 99283-25

== ENCOUNTER 2019-04-17 09:33 | Emergency (ER) | payer OTHER ==
[2019-04-17 09:40] VITALS: BMI 29.4
--- NOTE | 2019-04-17 09:46 | PDOC ---
History of Present Illness - General Chief Complaint: Respiratory Stated Complaint: COLD SYMPTOMS Time Seen by Provider: 04/17/19 09:45 - History of Present Illness Initial Comments: 04/17/19 09:46 Ms. Dhaliwal is a 34 yo female at 39w and days w/ pmh of Sjogren's not requiring medication, anxiety, prior opioid dependence and ADHD, who presents for evaluation of one day history of dry cough with chest pain radiating to shoulders upon inspiration. Patient reports she was well until yesterday when she presented to hospital for pre-op labs in preparation for a later this week. Patient began having symptoms after getting home and reports they have continued until today. Denies any other symptoms besides pain and occasional chills. The patient denies headache and dizziness. Denies fever, nausea, vomit, diarrhea and constipation. Denies dysuria, frequency, urgency and hematuria. Past History - Past Medical History Allergies/Adverse Reactions: Allergies Allergy/AdvReac Type Severity Reaction Status Date / Time shellfish derived Allergy Verified 04/17/19 09:35 Home Medications: Ambulatory Orders Cephalexin [Keflex] 250 mg PO Q6H #16 capsule 04/17/19 Ondansetron [Zofran *Odt*] 4 mg GT TID PRN #12 tab.rapdis 04/17/19 Oseltamivir Phosphate [Tamiflu] 75 mg PO BID #10 capsule 04/17/19 Anemia: Yes (no medication) Asthma: No Cancer: No Cardiac Disorders: No CVA: No COPD: No CHF: No Dementia: No Diabetes: No GI Disorders: No Disorders: No HTN: No Hypercholesterolemia: No Kidney Stones: No Liver Disease: No Seizures: No Thyroid Disease: No - Reproductive History (#): 3 Para: 2 PID: No - Immunization History Immunization Up to Date: Yes - Psycho Social/Smoking Cessation Hx Smoking Status: No Smoking History: Never smoked Have you smoked in the past 12 months: No Number of Cigarettes Smoked Daily: 0 Hx Alcohol Use: No Drug/Substance Use Hx: No Substance Use Type: Opiates Hx Substance Use Treatment: No Review of Systems - Review of Systems Comments:: 04/17/19 10:24 GENERAL/CONSTITUTIONAL: No fever or chills. No weakness. HEAD, EYES, EARS, NOSE AND THROAT: No change in vision. No ear pain or discharge. No sore throat. CARDIOVASCULAR: +Chest pain as described. RESPIRATORY: No cough, wheezing, or hemoptysis. GASTROINTESTINAL: No nausea, vomiting, diarrhea or constipation. GENITOURINARY: No dysuria, frequency, or change in urination. MUSCULOSKELETAL: No joint or muscle swelling or pain. No neck or back pain. SKIN: No rash NEUROLOGIC: No headache, vertigo, loss of consciousness, or change in strength/sensation. ENDOCRINE: No increased thirst. No abnormal weight change HEMATOLOGIC/LYMPHATIC: No anemia, easy bleeding, or history of blood clots. ALLERGIC/IMMUNOLOGIC: No hives or skin allergy. *Physical Exam - Vital Signs Last Vital Signs Temp Pulse Resp BP Pulse Ox 99.5 F 138 H 18 108/63 100 04/17/19 09:35 04/17/19 09:35 04/17/19 09:35 04/17/19 09:35 04/17/19 09:35 - Physical Exam 04/17/19 10:24 GENERAL: Awake, alert, and fully oriented, in no acute distress HEAD: No signs of trauma, normocephalic, atraumatic EYES: PERRLA, EOMI, sclera anicteric, conjunctiva clear ENT: Auricles normal inspection, hearing grossly normal, nares patent, oropharynx clear without exudates. Moist mucosa NECK: Normal ROM, supple, no lymphadenopathy, JVD, or masses LUNGS: No distress, speaks full sentences, clear to auscultation bilaterally HEART: +Tachycardic rate, regular rhythm, normal S1 and S2, no murmurs, rubs or gallops, peripheral pulses normal and equal bilaterally. ABDOMEN: Soft, visibly c/w dates, nontender, normoactive bowel sounds. No guarding, no rebound. No masses EXTREMITIES: Normal inspection, Normal range of motion, no edema. No clubbing or cyanosis. NEUROLOGICAL: Cranial nerves II through XII grossly intact. Normal speech, normal gait, no focal sensorimotor deficits SKIN: Warm, Dry, normal turgor, no rashes or lesions noted. ED Treatment Course - LABORATORY CBC & Chemistry Diagram: 04/17/19 10:20 04/17/19 10:20 Medical Decision Making - Medical Decision Making 04/17/19 12:46 Ms. Dhaliwal is a 34 yo female w/ pmh as described who presents for evaluation of symptoms concerning for PE vs. pneumonia vs. ACS. Patient evaluated with labs as below as well as EKG / US. Patient labs significant for positive flu B as well as UTI. Patient given rocephin in ED and ABX sent to patient's pharmacy. Patient also started on tamiflu and given zofran for anti-emetic. Bedside cardiac and POCUS negative w/ re-assuring heart rate. Duplex study likewise negative. Patient tachycardia improved following fluids and treatment of temperature w/ tylenol. Discussed patient with [employer] (Michelle) who is comfortable with transfer to L&D for monitoring and discharge for f/u Friday for previously scheduled assuming no concerning findings. No concern for acute process at this time. Discharging to home. Discharge - Discharge Information Problems reviewed: Yes Clinical Impression/Diagnosis: Influenza B Disposition: HOME - Additional Discharge Information Prescriptions: Cephalexin [Keflex] 250 mg PO Q6H #16 capsule Oseltamivir Phosphate [Tamiflu] 75 mg PO BID #10 capsule Ondansetron [Zofran *Odt*] 4 mg GT TID PRN #12 tab.rapdis PRN Reason: Nausea - Follow up/Referral Referrals: Vu Zayas MD [Primary Care Provider] - - Patient Discharge Instructions Patient Printed Discharge Instructions: DI for Influenza -- Adult Additional Instructions: You were evaluated today in the ER for your chest pain and found to have influenza type B as well as a UTI. We started you on antibiotics as well as tamiflu for treatment as well as sent a prescription for zofran to your pharmacy. Take all medications as described. Please follow-up on Friday for your previously scheduled as discussed. Return to ER if any increase in pain, difficulty tolerating oral medications, or other concerning findings. - Post Discharge Activity
[2019-04-17] MEDS ORDERED: SODIUM CHLORIDE 0.9% 1000 ML INFUS.BAG IV ONE (10:05)
[2019-04-17] MEDS ORDERED: ACETAMINOPHEN 1000 MG/100 ML VIAL (NON FORMULARY) IVPB ONE (10:16)
[2019-04-17] MEDS ORDERED: ACETAMINOPHEN INJECTION 100 ML IVPB ONE (10:31)
--- NOTE | 2019-04-17 10:37 | PDOC ---
Documentation entered by Talya Méndez SCRIBE, acting as scribe for Amy Motley DO. Amy Motley DO: This documentation has been prepared by the brando, Talya Méndez SCRIBE, under my direction and personally reviewed by me in its entirety. I confirm that the documentation accurately reflects all work, treatment, procedures, and medical decision making performed by me. Attending Attestation - Resident Resident Name: Donell Irvin - ED Attending Attestation I have performed the following: I have examined & evaluated the patient, The case was reviewed & discussed with the resident, I agree w/resident's findings & plan, Exceptions are as noted - HPI HPI: 04/17/19 10:37 The patient is a 34-year-old female with a significant past medical history of Sjogren's( not on medications) hypoglycemia, anxiety, prior opioid dependence and ADHD presenting with acute onset chest pain and shortness of breath since 3 AM. Patient reports had she had difficulty sleeping due to her symptoms. She d escribes her chest pain as intermittent, sharp, tight,squeezing and non radiating. She denies any alleviating or exacerbating factors. Patient reports having intermittent palpitations, low blood sugar and generalized fatigue over the past year without consulting her primary care physician. She denies recent fevers, chills, headache or dizziness. She denies recent nausea, vomit, diarrhea or constipation. She denies recent dysuria, frequency, urgency or hematuria. Denies any recent drug use. Allergies: None Surgical history: C section - Physicial Exam PE: 04/17/19 10:31 Gen: aaox3, uncomfortable appearing, tachy heent: dry mm, posterior pharynx clear, +clear rhinorrhea/nasal congestion heart:+s1s2 tachy lungs: cta b/l abd: soft, nt/nd, +gravid to above the umbilicus ext: no c/c/e, no calf ttp - Medical Decision Making 04/17/19 10:32 a/p: 34yo female at 39+2 days preg who is due for c section on friday with Dr. Martinez -pt states sore throat, rhinorrhea, cough, cp started last night -other child at home with rhinorrhea -pt tachy, tachypnic, pleuritic cp -concern for flu vs viral syndrome vs pe -will send labs, rectal temp, ua -will perform bedside echo and tab preg us -will send for dvt study -will monitor and reassess -tylenol, ivf -will discuss with [employer] 04/17/19 11:01 bedside ultrasound shows trace pericardial effusion, no tamponade physiology, no rv strain hr 131, good movement, 39 weeks 04/17/19 11:36 pt with UTI, will start iv abx 04/17/19 11:38 pt is flu b+ will start tamiflu will discuss with [employer] pt updated 04/17/19 11:58 resident discussing the case with Dr. Martinez 04/17/19 12:03 Michelle recommends tamiflu, still ok for c section friday as long as pt on tamiflu pending ultrasound will need to go to L&D for monitoring 04/17/19 12:45 no dvt lower suspicion for PE given no right heart strain on echo, fever and tachy improved with tylenol and fluids, + flu, +uti, dvt study neg pt stable and cleared to go to L&D for monitoring pt stable for dc to home to take abx, antivirals, zofran for nausea and po intake Heart Score/ECG Review - ECG Intrepretation Comment:: 04/17/19 10:36 sinus at 115, nl axis, nl interval, low voltage, no acute st/t wave findings, no [id number]
[2019-04-17 11:17] LABS: BASO % 0.4 % (0-2.0); HEMATOCRIT 34.1 % (32.4-45.2); HEMOGLOBIN 11.9 GM/dL (10.7-15.3); LYMPH % 5.7 % (8-40); MCH 32.3 pg (25.7-33.7); MEAN CELL VOLUME 92.5 fl (80-96); MEAN PLT VOLUME 9.7 fl (7.5-11.1); NEUT % 83.9 % (42.8-82.8); PLATELET COUNT 154 K/MM3 (134-434); RBC 3.68 M/mm3 (3.60-5.2); RDW 13.5 % (11.6-15.6); WHITE BLOOD COUNT 6.9 K/mm3 (4.0-10.0)
[2019-04-17 11:19] LABS: HYALINE CASTS 66 /lpf (0-8); PH,URINE 6.5 (5.0-8.0); URINE APPEARANCE TURBID; URINE BACTERIA 1030.1 /hpf (NEGATIVE); URINE BILIRUBIN NEGATIVE (NEGATIVE); URINE COLOR YELLOW; URINE GLUCOSE (UA) NEGATIVE (NEGATIVE); URINE KETONE 3+ (NEGATIVE); URINE LEUK ESTERASE 1+ (NEGATIVE); URINE NITRITE NEGATIVE (NEGATIVE); URINE PROTEIN TRACE (NEGATIVE); URINE RBC 4 /hpf (0-4); URINE UROBILINOGEN 0.2 mg/dL (0.2-1.0); URINE WBC 44 /hpf (0-5)
[2019-04-17] MEDS ORDERED: CEFTRIAXONE 1 GM in DEXTROSE 5%-WATER - 100 ML IVPB ONE (11:32)
[2019-04-17] MEDS ORDERED: LACTATED RINGERS SOLUTION 1000 ML INFUS.BAG IV ONE (11:38)
[2019-04-17 11:43] LABS: ALK PHOS 172 U/L (45-117); ANION GAP 8 MMOL/L (8-16); BILIRUBIN,TOTAL 0.3 mg/dL (0.2-1); BLOOD UREA NITROGEN 5.1 mg/dL (7-18); CHLORIDE 106 mmol/L (98-107); CO2 24 mmol/L (21-32); CREATININE 0.6 mg/dL (0.55-1.3); GLUCOSE,RANDOM 85 mg/dL (74-106); N-TERMINAL BNP 165.2 pg/ml (5-125); POTASSIUM 3.8 mmol/L (3.5-5.1); SGOT/AST 23 U/L (15-37); SGPT/ALT 15 U/L (13-61); SODIUM 138 mmol/L (136-145); TOT PROT 6.3 g/dl (6.4-8.2)
--- NOTE | 2019-04-17 11:53 | EKG ---
Test Reason : Blood Pressure : / mmHG Vent. Rate : 115 BPM Atrial Rate : 115 BPM P-R Int : 134 ms QRS Dur : 078 ms QT Int : 294 ms P-R-T Axes : 015 -04 002 degrees QTc Int : 406 ms SINUS TACHYCARDIA ANTERIOR INFARCT , AGE UNDETERMINED ABNORMAL ECG WHEN COMPARED WITH ECG OF 20-JUN-2018 07:12, VENT. RATE HAS INCREASED BY 41 BPM Confirmed by Pascual Price MD ([id number]) on 04/17/2019 11:53:31 AM Referred By: Confirmed By:Pascual Price MD
[2019-04-17] MEDS ORDERED: OSELTAMIVIR PHOSPHATE 6 MG/1 ML PO ONE (12:02)
[2019-04-17] MEDS ORDERED: ONDANSETRON 4 MG/2 ML VIAL IVPUSH ONE (12:04)
[2019-04-17] MEDS ORDERED: OSELTAMIVIR PHOSPHATE 75 MG CAPSULE ONE (12:42)
[2019-04-17] MEDS ORDERED: ONDANSETRON 4 MG/2 ML VIAL ONE (12:43)
[2019-04-17] MEDS ORDERED: CEFTRIAXONE 1 GM/50 ML BAG ONE ×2 (12:43)
[2019-04-17 14:31] VITALS: TEMP 97.5
[2019-04-17 15:19] VITALS: BP 102/60; PULSE 96
== END 2019-04-17 14:35 | disposition home or self-care (01) ==
LOC: JER 09:33
PROC: 3E0337Z Introduction of Electrolytic and Water Balance Substance into Peripheral Vein, Percutaneous Approach (ICD-10-PCS; principal; 2019-04-17)
PROC: 3E033NZ Introduction of Analgesics, Hypnotics, Sedatives into Peripheral Vein, Percutaneous Approach (ICD-10-PCS; 2019-04-17)
PROC: 3E03329 Introduction of Other Anti-infective into Peripheral Vein, Percutaneous Approach (ICD-10-PCS; 2019-04-17)
PROC: 3E033GC Introduction of Other Therapeutic Substance into Peripheral Vein, Percutaneous Approach (ICD-10-PCS; 2019-04-17)
DX: J10.1 Influenza due to other identified influenza virus with other respiratory manifestations (principal); M35.00 Sjogren syndrome, unspecified; F41.9 Anxiety disorder, unspecified; F90.9 Attention-deficit hyperactivity disorder, unspecified type; F11.20 Opioid dependence, uncomplicated; Z91.013 Allergy to seafood
CPT/HCPCS: 36415; 76815; 80053; 81003; 82550; 83880; 84443; 84484; 85025; 85730; 86850; 86900; 86901; 87086; 87804; 93005; 93010; 93308; 93970-TC; 99285-25; J0131; J7030

== ENCOUNTER 2022-10-31 04:40 | Day surgery (SDC) | payer OTHER ==
[2022-10-29 10:59] VITALS: BMI 25.9
[2022-10-31 12:24] VITALS: RESP 18; TEMP 98.4
[2022-10-31 12:56] VITALS: BP 97/57; PULSE 72
== END 2022-10-31 13:12 | disposition home or self-care (01) ==
LOC: JASU-ENDO 04:40
PROVIDERS: ATTEND Internal Medicine Gastroenterology
PROC: 0DBB8ZX Excision of Ileum, Via Natural or Artificial Opening Endoscopic, Diagnostic (ICD-10-PCS; principal; 2022-10-31 11:30)
DX: K52.89 Other specified noninfective gastroenteritis and colitis (principal); K64.8 Other hemorrhoids; Z86.010 Personal history of colon polyps
CPT/HCPCS: 81025; 88305-TC

== ENCOUNTER 2022-11-29 10:35 | Day surgery (SDC) | payer OTHER ==
[2022-11-29] MEDS ORDERED: IRON SUCROSE INJECTION 200 MG in SODIUM CHLORIDE 100 ML IVPB ONE (11:00)
[2022-11-29 13:39] VITALS: BP 121/57; PULSE 70; RESP 16; TEMP 97.9
== END 2022-11-29 13:54 | disposition home or self-care (01) ==
LOC: FINFUSION 10:35 → FM/S 10:37 → FINFUSION 13:54
PROVIDERS: ATTEND Family Medicine
PROC: 3E033GC Introduction of Other Therapeutic Substance into Peripheral Vein, Percutaneous Approach (ICD-10-PCS; principal; 2022-11-29)
DX: D50.9 Iron deficiency anemia, unspecified (principal)
CPT/HCPCS: 96365; J1756

== ENCOUNTER 2022-12-06 10:51 | Day surgery (SDC) | payer OTHER ==
[2022-12-06] MEDS ORDERED: diphenhydrAMINE HCL 50 MG CAPSULE PO PRN (11:39)
[2022-12-06] MEDS ORDERED: HYDROCORTISONE SOD SUCCINATE 100 MG/2 ML VIAL IVPUSH PRN (11:40)
[2022-12-06] MEDS ORDERED: IRON SUCROSE INJECTION 200 MG in SODIUM CHLORIDE 100 ML IVPB ONE (12:00)
[2022-12-06 19:06] VITALS: BP 110/48; PULSE 70; RESP 18; TEMP 97.9
== END 2022-12-06 13:29 | disposition home or self-care (01) ==
LOC: FINFUSION 10:51 → FM/S 10:53 → FINFUSION 13:29
PROVIDERS: ATTEND Family Medicine
PROC: 3E033GC Introduction of Other Therapeutic Substance into Peripheral Vein, Percutaneous Approach (ICD-10-PCS; principal; 2022-12-06)
DX: D50.9 Iron deficiency anemia, unspecified (principal)
CPT/HCPCS: 96365; J1756

== ENCOUNTER 2022-12-20 10:49 | Day surgery (SDC) | payer OTHER ==
[2022-12-20] MEDS ORDERED: diphenhydrAMINE HCL 25 MG CAPSULE (FP) PO PRN (11:14)
[2022-12-20] MEDS ORDERED: HYDROCORTISONE SOD SUCCINATE 100 MG/2 ML VIAL IVPUSH PRN (11:15)
[2022-12-20] MEDS ORDERED: IRON SUCROSE INJECTION 200 MG in SODIUM CHLORIDE 90 ML IVPB ONE (11:30)
[2022-12-20 12:28] VITALS: PULSE 63; RESP 18; TEMP 97.8
[2022-12-20 12:59] VITALS: BP 118/74
== END 2022-12-20 13:09 | disposition home or self-care (01) ==
LOC: FINFUSION 10:49 → FM/S 10:50 → FINFUSION 13:09
PROVIDERS: ATTEND Family Medicine
PROC: 3E033GC Introduction of Other Therapeutic Substance into Peripheral Vein, Percutaneous Approach (ICD-10-PCS; principal; 2022-12-20)
DX: D50.9 Iron deficiency anemia, unspecified (principal)
CPT/HCPCS: 96365; J1756

== ENCOUNTER 2022-12-27 11:00 | Day surgery (SDC) | payer OTHER ==
[2022-12-27 11:32] VITALS: BP 100/56; PULSE 64; RESP 18
[2022-12-27] MEDS ORDERED: IRON SUCROSE INJECTION 200 MG in SODIUM CHLORIDE 100 ML IVPB ONE (11:45)
[2022-12-27 11:47] VITALS: TEMP 98.2
== END 2022-12-27 12:57 | disposition home or self-care (01) ==
LOC: FINFUSION 11:00 → FM/S 11:01 → FINFUSION 12:57
PROVIDERS: ATTEND Family Medicine
PROC: 3E033GC Introduction of Other Therapeutic Substance into Peripheral Vein, Percutaneous Approach (ICD-10-PCS; principal; 2022-12-27)
DX: D50.9 Iron deficiency anemia, unspecified (principal)
CPT/HCPCS: 96365; J1756

== ENCOUNTER 2023-01-07 05:21 | Day surgery (SDC) | payer OTHER ==
[2022-12-31 11:07] VITALS: BMI 26.7
[2023-01-07 10:00] VITALS: TEMP 97.3
[2023-01-07 10:36] VITALS: BP 101/53; PULSE 78; RESP 18
[2023-01-09 16:08] LABS: ATYPICAL pANCA <1:20 titer (Neg:<1:20)
== END 2023-01-07 10:36 | disposition home or self-care (01) ==
LOC: JASU-ENDO 05:21
PROVIDERS: ATTEND Internal Medicine Gastroenterology
PROC: 0DB98ZX Excision of Duodenum, Via Natural or Artificial Opening Endoscopic, Diagnostic (ICD-10-PCS; 2023-01-07)
PROC: 0DB78ZX Excision of Stomach, Pylorus, Via Natural or Artificial Opening Endoscopic, Diagnostic (ICD-10-PCS; 2023-01-07)
PROC: 0DB68ZX Excision of Stomach, Via Natural or Artificial Opening Endoscopic, Diagnostic (ICD-10-PCS; principal; 2023-01-07 09:45)
DX: K29.50 Unspecified chronic gastritis without bleeding (principal); K31.7 Polyp of stomach and duodenum
CPT/HCPCS: 36415; 81025; 86256; 86671; 88305-TC; 88342-TC